=== PATIENT | female | born 1935 | race Caucasian/White ===

== ENCOUNTER 2021-05-11 16:34 | Emergency (ER) | payer OTHER ==
--- OUTSIDE RECORDS SUMMARY | 2021-05-11 16:38 | XMS REPORT | Clinical Summary ---
:1935 Author Organization [facility] MD [facility] Address [address] [place] [address] Care Team Providers Name Role Phone Taylor Swanson Unavailable Humaira Rahman MD Unavailable Jin Gaitan MD Unavailable MD Herb Primary Care Provider Allergies Not on File Medications Not on file Active Problems Not on file Encounters Date Type Specialty Care Team Description 05/09/2021 Lab Requisition Lv Robbins MD Xu, Xiangdong 05/08/2021 Lab Requisition Lv Robbins MD 05/07/2021 Lab Requisition Lv Robbins MD Witson, Anne S., MD 04/28/2021 Telephone Patient Access Services Pj Clayton RN 04/26/2021 Travel 04/23/2021 Telephone Patient Access Services ClaytonPj RN after 05/11/2020 Social History Tobacco Use Types Packs/Day Years Used Date Never Assessed Sex Assigned at Date Recorded Not on file Job Start Date Occupation Industry Not on file Not on file Not on file COVID-19 Exposure Response Date Recorded In the last month, have you been in contact with No / Unsure 04/26/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 Last Filed Vital Signs Not on file Plan of Treatment Date Type Specialty Care Team Description 05/23/2021 NPR Patient Access Services Kenny Estevez MD [address] [place], [place] [address] (Wo rk) 05/28/2021 Office Visit Lymphoma and Myeloma Sawyer Estevez MD [address] [place], [place] [address] (Wo rk) Health Maintenance Due Date Last Done Comments COVID-19 Vaccination (3 - Booster for 11/22/2020 06/22/2020 , 05/24/2020 Moderna series) Results Not on fileafter 05/11/2020 Insurance Payer Benefit Plan Subscriber ID Effective Phone Address Typ e / Group Dates MEDICARE MEDICARE PART [id number] 2002-Pres [phone] NOVITAS Medicare A AND B ent [id number] [place] [address] FOR [id number] 2021-Pres [address] [place] Other [address] Care Teams Ditch Rider Relationship Specialty Start Date End Date Taylor Swanson PCP - External Referring Hematology and 04/23/[address] Oncology [place], [place] [id number] Kenny Estevez MD PCP - General Lymphoma and Myeloma 04/26/21 [address] [place] [address] Humaira Rahman MD Physician Medical Oncology 04/26/21 [address] [facility] [place] [address] [place] [address] Jin Gaitan Physician Family Practice 04/26/21 MD [address] [place] [address]
--- OUTSIDE RECORDS SUMMARY | 2021-05-11 16:38 | XMS REPORT | Continuity of Care Document ---
:1935 Author Organization [facility] t Address [address] [place] [address] Care Team Providers Name Role Phone [phone] Primary Care Physician Unavailable SYSTEM, PROVIDER NOT IN Attending Clinician Unavailable Yunier Robbins MD Attending Clinician Pool Attending Clinician Anna TAPIA SMaya Attending Clinician Forrest RN Attending Clinician Unavailable Payers Payer Name Policy Type Policy Effective Date Expiration Date Sour ce Number MEDICAREMEDICARE PART [id number] 2002 MD Naif Austin AND 00:00:00 [id number]-P [id number] [facility] [address]Medicare TRICARETRICARE FOR [id number] 2021 MD Maile christine [id number]/3/202 00:00:00 [address] [place] [id number] Other Problems This patient has no known problems. Allergies, Adverse Reactions, Alerts This patient has no known allergies or adverse reactions. Social History Social Habit Start Date Stop Date Quantity Comments Source Exposure to Not sure MD Disla SARS-CoV-2 (event) Sex Ass[birth year] At [birth year] MD Disla 00:00:00 00:00:00 Medications This patient has no known medications. Procedures This patient has no known procedures. Plan of Care Planned Activity Planned Date Details Comments Source Future Scheduled Test 2020-11-22 00:00:00 COVID-19 Vaccination (3 MD Naif - Booster for Moderna series) [code = COVID-19 Vaccination (3 - Booster for Moderna series)] Encounters Start End Encounter Admission Attending Care Care Encounter Source Date/Time Date/Time Type Type Clinicians Facility Department ID 2021-04-23 Outpatient SYSTEM, RADHA GARCIA [id number] 14:05:02 PROVIDER Raffy o n Results This patient has no known results.
--- NOTE | 2021-05-11 17:38 | RAD REPORT ---
EXAM DESCRIPTION: RAD - Pelvis - 05/11/2021 5:21 pm CLINICAL HISTORY: Pelvic pain status post injury FINDINGS: No fracture or dislocation is seen. Screws fuse the SI joints. Bones are osteoporotic If the patient continues to have symptoms to suggest an occult fracture then MRI would be recommended
--- NOTE | 2021-05-11 17:38 | RAD REPORT ---
EXAM DESCRIPTION: RAD - Hip Left 2 View - 05/11/2021 5:21 pm CLINICAL HISTORY: Left hip pain status post injury FINDINGS: No fracture or dislocation is seen. Screws fuse the SI joints. Bones are osteoporotic If the patient continues to have symptoms to suggest an occult fracture then MRI would be recommended
--- NOTE | 2021-05-11 18:07 | RAD REPORT ---
EXAM DESCRIPTION: CT - Head C Spine Mpr Wo Con - 05/11/2021 5:38 pm CLINICAL HISTORY: Head and neck injury status post fall. Head and neck pain COMPARISON: None. TECHNIQUE: Computed axial tomography of the head and cervical spine was obtained. Sagittal and coronal reconstruction was performed. All CT scans are performed using dose optimization technique as appropriate and may include automated exposure control or mA/KV adjustment according to patient size. FINDINGS: An intracranial bleed is not seen. The ventricles are normal in caliber. An extra-axial fl uid collection is not noted. Left maxillary sinusitis Minimally displaced fracture involves the right lateral mass of C2 extending to the right transverse foramen. Extensive postsurgical changes involve the C2 to the upper thoracic spine. Plates, screws and bone pl ugs have been placed into the proximal and mid cervical spine. Pedicular and laminar screws have been placed into the mid and distal cervical spine and thoracic spine. Laminectomies of been performed. Lucency of 4 millimeters is present between the posterior aspect of the anterior plate C5 and the ant erior aspect of vertebral body. Kyphosis is present at this level. No dislocation noted IMPRESSION: No acute intracranial abnormality is seen. Minimally displaced fracture right lateral mass of C2 Extensive postsurgical changes involving spine
--- NOTE | 2021-05-11 18:37 | EDPHYS ---
Physician Documentation [facility] Name: Olga Santiago Age: 85 yrs Sex: Female : 1935 Arrival Date: 05/11/2021 Time: 16:38 Bed 18 Private MD: ED Physician Dayo Hickey HPI: 05/11 17:37 This 85 yrs old Female presents to ER via Ambulatory with complaints of Fall Injury, rn Head Injury-Adult. 17:37 Details of fall: The patient fell from an upright position. Onset: The symptoms/episode rn began/occurred just prior to arrival. Associated injuries: The patient sustained injury to the head, contusion, pain. Severity of symptoms: At their worst the symptoms were mild, in the emergency department the symptoms are unchanged. The patient has not experienced similar symptoms in the past. The patient has not recently seen a physician. Pt reports fall from step-stool, hit left head and ear, no LOC, doesn't remember the events, reports more pain to right neck and not the location where she hit. Reports previous neck surgery and wants to make sure didn't ruin anything. Also reports pain to left hip but ambulatory. Takes aspirin. . Historical: - Allergies: 16:45 Clindamycin; ld1 - PMHx: 16:45 Diabetes mellitus; Hypertensive disorder; ld1 - PSHx: 16:45 Appendectomy; Hysterectomy; Tonsillectomy; Cervical surgery; ld1 - Immunization history:: Adult Immunizations up to date, Client reports receiving the 2nd dose of the Covid vaccine. - Social history:: Smoking status: Patient reports the use of cigarette tobacco products, Patient/guardian denies using alcohol. - Immunization history: Last tetanus immunization: - up to date. - Family history:: not pertinent. - Hospitalizations: : No recent hospitalization is reported. ROS: 17:37 Constitutional: Negative for fever, chills, and weight loss, Eyes: Negative for injury, rn pain, redness, and discharge, Neck: + neck pain Cardiovascular: Negative for chest pain, palpitations, and edema, Respiratory: Negative for shortness of breath, cough, wheezing, and pleuritic chest pain, Abdomen/GI: Negative for abdominal pain, nausea, vomiting, diarrhea, and constipation, Back: Negative for injury and pain, : Negative for injury, bleeding, discharge, and swelling, MS/Extremity: Negative for injury and deformity, Skin: Negative for injury, rash, and discoloration, Neuro: + headache Exam: 17:37 Constitutional: This is a well developed, well nourished patient who is awake, alert, rn and in no acute distress. Head/Face: Normocephalic, linear contusion left occiput, no laceration, no active bleeding. Eyes: Pupils equal round and reactive to light, extra-ocular motions intact. Lids and lashes normal. Conjunctiva and sclera are non-icteric and not injected. Cornea within normal limits. Periorbital areas with no swelling, redness, or edema. Neck: Trachea midline, no masses palpated, no cervical bony tenderness Cardiovascular: Regular rate and rhythm. No pulse deficits. Respiratory: No increased work of breathing, no retractions or nasal flaring. Abdomen/GI: Soft, non-tender MS/ Extremity: Pulses equal, no cyanosis. Neurovascular intact. Full, normal range of motion. Equal circumference. Mild tenderness left posterior hip with swelling. Ambulatory and stands on her own power. Neuro: Awake and alert, GCS 15, oriented to person, place, time, and situation. Cranial nerves II-XII grossly intact. Motor strength 5/5 in all extremities. Sensory grossly intact. Cerebellar exam normal. Normal gait. Vital Signs: 16:41 BP 157 / 115; Pulse 84; Resp 17; Temp 98.7(TE); Pulse Ox 100% on R/A; Weight 70.76 kg; ld1 Height 5 ft. 3 in. (160.02 cm); Pain 10/10; 16:41 Body Mass Index 27.63 (70.76 kg, 160.02 cm) ld1 [place] Coma Score: 16:41 Eye Response: spontaneous(4). Verbal Response: oriented(5). Motor Response: obeys ap3 commands(6). Total: 15. 19:28 Eye Response: spontaneous(4). Verbal Response: oriented(5). Motor Response: obeys sm5 commands(6). Total: 15. Trauma Score (Adult): 16:41 Eye Response: spontaneous(1); Verbal Response: oriented(1); Motor Response: obeys ap3 commands(2); Systolic BP: > 89 mm Hg(4); Respiratory Rate: 10 to 29 per min(4); [place] Score: 15; Trauma Score: 12 MDM: 16:52 Patient medically screened. rn 18:33 Differential diagnosis: closed head injury, contusion, fracture, sprain, strain. Data rn reviewed: vital signs, nurses notes, radiologic studies, CT scan, plain films, and as a result, I will admit patient. Counseling: I had a detailed discussion with the patient and/or guardian regarding: the historical points, exam findings, and any diagnostic results supporting the discharge/admit diagnosis, radiology results, the need for further work-up and treatment in the hospital, the need to transfer to another facility, for higher level of care, [facility] does not immediately have the required specialist. ED course: Pt with fracture of right lateral mass of C2. No new neurological symptoms or signs on exam. Will transfer to [place] for MRI and neurosurgical eval, but anticipate low chance of intervention given lack of new neurological symptoms. Will transfer given high chance of concomitant cervical injuries with C2 mass fracture, and unable to get MRI or neurosurgical consult here to further eval stability/instability. Pt placed in C-collar and transferred in c-collar.. 05/11 16:57 Order name: CT Head C Spine; Complete Time: 18:09 rn 05/11 16:57 Order name: XRAY Pelvis; Complete Time: 18:09 rn 05/11 16:57 Order name: XRAY Hip LEFT 2 view; Complete Time: 18:09 rn Administered Medications: No medications were administered Disposition Summary: 05/11/21 18:36 Transfer Ordered Transfer Location: [facility] rn Reason: Higher level of care rn Condition: Stable rn Problem: new rn Symptoms: are unchanged rn Accepting Physician: Dr. Omid Corea(05/11/21 19:29) sm5 Diagnosis - Other displaced fracture of second cervical vertebra, initial encounter for closed rn fracture - Right lateral mass, minimally displaced Forms: - Medication Reconciliation Form rn - SBAR form rn Signatures: Dispatcher [employer] EDMS Dayo Hickey MD MD rn Prokisch, Amanda RN RN ap3 Mikala Chery Lauren RN RN ld1 Alyssa Bethea RN RN sm5 Corrections: (The following items were deleted from the chart) 16:48 16:45 Allergies: Aspirin; ld1 ld1 17:09 16:49 Head Brain Wo Cont+CT.RAD.BRZ ordered. EDMS EDMS 17:33 17:32 Head C Spine Mpr Wo Con ordered. EDMS EDMS 18:52 18:36 Dr. guerrier eb 19:29 18:52 Dr. Omid Corea eb sm5 05/12 08:24 05/11 18:33 ED course: Pt with fracture of right lateral mass of C2. No new rn neurological symptoms or signs on exam. Will transfer to [place] for MRI and neurosurgical eval, but anticipate low chance of intervention given lack of new neurological symptoms. Will transfer given high chance of concomitant cervical injuries with C2 mass fracture, and unable to get MRI or neurosurgical consult here to further eval stability/instability. . rn
--- NOTE | 2021-05-11 18:37 | ER ---
Nurse's Notes [facility] Name: Olga Santiago Age: 85 yrs Sex: Female : 1935 Arrival Date: 05/11/2021 Time: 16:38 Bed 18 Private MD: Diagnosis: Other displaced fracture of second cervical vertebra, initial encounter for closed fracture-Right lateral mass, minimally displaced Presentation: 05/11 16:41 Chief complaint: Patient states: I fell today at home, I hit my left ear/head. I was ld1 not aware that I fell, until I was getting myself up off of the floor. I was putting books on the bookshelf. Pt does not recall falling, does not know what she hit. Pt takes baby aspirin daily. Coronavirus screen: At this time, the client does not indicate any symptoms associated with coronavirus-19. Ebola Screen: No symptoms or risks identified at this time. Initial Sepsis Screen: Does the patient meet any 2 criteria? No. Patient's initial sepsis screen is negative. Does the patient have a suspected source of infection? No. Patient's initial sepsis screen is negative. Risk Assessment: Do you want to hurt yourself or someone else? Patient reports no desire to harm self or others. Onset of symptoms was May 11, 2021. 16:41 Method Of Arrival: Ambulatory ld1 16:41 Acuity: RACHEL 3 ld1 16:41 Care prior to arrival: None. Mechanism of Injury: Fall down steps. Trauma event ap3 details: Injury occurred in the [facility], Injury occurred: at home. Triage Assessment: 16:45 General: Appears in no apparent distress. uncomfortable, Behavior is cooperative, ld1 anxious. Pain: Complains of pain in face and left hip Pain does not radiate. Pain currently is 10 out of 10 on a pain scale. Neuro: Level of Consciousness is awake, alert, obeys commands, Oriented to person, place, time, situation, Appropriate for age. Respiratory: Airway is patent Respiratory effort is even, unlabored. Musculoskeletal: Reports pain in neck. Trauma Activation: Not Applicable Physician: ED Physician; Name: ; Notified At: ; Arrived At: Physician: General Surgeon; Name: ; Notified At: ; Arrived At: Physician: Radiology; Name: ; Notified At: ; Arrived At: Physician: Respiratory; Name: ; Notified At: ; Arrived At: Physician: Lab; Name: ; Notified At: ; Arrived At: Historical: - Allergies: 16:45 Clindamycin; ld1 - PMHx: 16:45 Diabetes mellitus; Hypertensive disorder; ld1 - PSHx: 16:45 Appendectomy; Hysterectomy; Tonsillectomy; Cervical surgery; ld1 - Immunization history:: Adult Immunizations up to date, Client reports receiving the 2nd dose of the Covid vaccine. - Social history:: Smoking status: Patient reports the use of cigarette tobacco products, Patient/guardian denies using alcohol. - Immunization history: Last tetanus immunization: - up to date. - Family history:: not pertinent. - Hospitalizations: : No recent hospitalization is reported. Screenin:41 Abuse screen: Denies threats or abuse. Denies injuries from another. Nutritional ap3 screening: No deficits noted. Tuberculosis screening: No symptoms or risk factors identified. Fall Risk Fall in past 12 months (25 points). No secondary diagnosis (0 pts). No IV (0 pts). Ambulatory Aid- None/Bed Rest/Nurse Assist (0 pts). Gait- Weak (10 pts.). Mental Status- Oriented to own ability (0 pts). Total Vazquez Fall Scale indicates Low Risk Score (25-44 pts). Fall prevention measures have been instituted. Side Rails Up X 2 Placed close to Nursing Station Frequent Obs/Assesments occuring. Primary Survey: 16:41 NO uncontrolled hemorrhage observed. A: The patient is alert. Airway: patent, No ap3 supplemental oxygen in use on arrival. Breathing/Chest: Respiratory pattern: regular, Respiratory effort: spontaneous, unlabored. Circulation: Skin color: pink, Skin temperature: warm. Disability Alert. Exposure/Environment: A warming method has been applied: A warm blanket has been provided to the patient. 17:52 Reassessment Breathing/Chest Respiratory pattern Regular Respiratory effort Spontaneous ap3 Unlabored Circulation Color [place] Temperature Warm Disability Alert. Assessment: 17:02 General: Appears in no apparent distress. comfortable, Behavior is calm, cooperative, ap3 appropriate for age. Pain: Complains of pain in neck and pelvis and face and left hip Pain began suddenly, 3 hours ago. Neuro: Level of Consciousness is awake, alert, obeys commands, Oriented to person, place, time, situation, Appropriate for age Moves all extremities. Gait is steady, Speech is normal. Cardiovascular: Patient's skin is warm and dry. 17:03 Respiratory: Airway is patent Respiratory effort is even, unlabored, Respiratory ap3 pattern is regular, symmetrical. Derm: Wound noted left ear and left occipital area. Musculoskeletal:. Injury Description: fall from step ladder. 19:17 General: Appears in no apparent distress. Behavior is cooperative, appropriate for age. sm5 Neuro: Level of Consciousness is awake, alert, obeys commands, Oriented to person, place, time, situation. Cardiovascular: Capillary refill < 3 seconds Patient's skin is warm and dry. Respiratory: Airway is patent Trachea midline Respiratory effort is even, unlabored. Vital Signs: 16:41 BP 157 / 115; Pulse 84; Resp 17; Temp 98.7(TE); Pulse Ox 100% on R/A; Weight 70.76 kg; ld1 Height 5 ft. 3 in. (160.02 cm); Pain 10/10; 16:41 Body Mass Index 27.63 (70.76 kg, 160.02 cm) ld1 Michael Coma Score: 16:41 Eye Response: spontaneous(4). Verbal Response: oriented(5). Motor Response: obeys ap3 commands(6). Total: 15. 19:28 Eye Response: spontaneous(4). Verbal Response: oriented(5). Motor Response: obeys sm5 commands(6). Total: 15. Trauma Score (Adult): 16:41 Eye Response: spontaneous(1); Verbal Response: oriented(1); Motor Response: obeys ap3 commands(2); Systolic BP: > 89 mm Hg(4); Respiratory Rate: 10 to 29 per min(4); Michael Score: 15; Trauma Score: 12 ED Course: 16:38 Patient arrived in ED. mr 16:45 Triage completed. ld1 16:45 Arm band placed on right wrist. ld1 16:52 Dayo Hickey MD is Attending Physician. rn 17:10 CT Head C Spine In Process Unspecified. EDMS 17:20 XRAY Pelvis In Process Unspecified. EDMS 17:20 XRAY Hip LEFT 2 view In Process Unspecified. EDMS 17:50 Kristi Hughes, JOEL is Primary Nurse. ap3 17:53 Patient has correct armband on for positive identification. Bed in low position. Call ap3 light in reach. Side rails up X2. Pulse ox on. NIBP on. Door closed. Noise minimized. 17:53 Patient maintains SpO2 saturation greater than 95% on room air. ap3 17:53 Thermoregulation: warm blanket given to patient. ap3 18:35 initiated a transfer with Kristina from the [facility]/. 18:[address] Corea the neuro environmental geologist for [facility] with Dr. penelope Hickey for patient transfer consultation. 18:39 administrative approval given by Kristina Hernandez Rn/ patient has been accepted to [facility] ER/ Dr/ Omid Corea has accepted the patient in transfer/ report to be called to [phone]. 19:29 No provider procedures requiring assistance completed. Patient did not have IV access sm5 during this emergency room visit. Administered Medications: No medications were administered Output: 19:29 Urine: 200ml (Voided); Total: 200ml. 5 Outcome: 18:36 ER care complete, transfer ordered by . rn 19:28 Transferred by ground EMS to [facility], Transfer form completed. X-rays sent 5 w/ patient. 19:28 Condition: stable 19:28 Instructed on the need for transfer. 19:28 Patient's length of stay in the Emergency Department was greater than 2 hours. 19:29 Patient left the ED. 5 Signatures: Dispatcher [employer] EDVT Ria Sanchez Dayo Eugene MD MD rn Prokisch, Amanda, RN RN ap3 Mikala Chery Danna Urbano RN RN ld1 Alyssa Bethea RN RN 5 Corrections: (The following items were deleted from the chart) 16:48 16:45 Allergies: Aspirin; ld1 ld1
[2021-05-11 19:34] VITALS: BP 157/115; TEMP 98.7; O2SAT 100
== END 2021-05-11 19:29 | disposition short-term general hospital (02) ==
LOC: ER 16:34
DX: S12.190A Other displaced fracture of second cervical vertebra, initial encounter for closed fracture (principal); W17.89XA Other fall from one level to another, initial encounter; I10 Essential (primary) hypertension; E11.9 Type 2 diabetes mellitus without complications; Z88.3 Allergy status to other anti-infective agents; Z72.0 Tobacco use
CPT/HCPCS: 70450; 72125; 72170; 99285

== ENCOUNTER 2023-11-03 15:21 | Inpatient (IN) | payer OTHER ==
--- OUTSIDE RECORDS SUMMARY | 2023-11-03 15:26 | XMS REPORT | Clinical Summary ---
Author Name Unknown Organization [facility] Address [address] [place] [address] Care Team Providers Care Diaper Folder Name Role Phone Taylor Swanson Unavailable [phone] Humaira Rahman MD Unavailable Jin Gaitan MD Unavailable Kenny Estevez MD Primary Care Provider Salinas Baptiste MD Unavailable Mary Serna MD Unavailable Inga Juarez NP Unavailable Armani Sanders MD Unavailable Allergies Active Allergy Reactions Criticality Noted Date Comments Aripiprazole Diarrhea 04/03/2023 Diarrhea for 10 days Clindamycin Anaphylaxis High 05/28/2021 Medications Medication Sig Dispensed Refills Start Date End Date Status pantoprazole (PROTONIX) 40 mg EC tablet Take 1 tablet (40 mg) by mouth daily. 1 Active carvedilol (COREG CR) 40 mg 24 hr capsule Take 1 capsule (40 mg) by mouth at bedtime. 1 Active cetirizine (ZyrTEC) 10 mg tablet Take 1 tablet (10 mg) by mouth daily. 1 Active levothyroxine sodium (LEVOTHROID ORAL) Take 50 mg by mouth at bedtime. Active hydroCHLOROthiazid e (MICROZIDE) 12.5 mg capsule Take 1 capsule (12.5 mg) by mouth daily. 1 Active estradioL (CLIMARA) 0.075 mg/[address] 1 patch on the skin once a week. 2 Active diclofenac sodium (Voltaren) 1 % gel Apply topically as needed. Active oxyCODONE-acetamin ophen (PERCOCET) 7.5-325 mg per tablet Take 1 tablet by mouth every 6 (six) hours as needed for severe pain or moderate pain. 2 Active potassium chloride (K-DUR,KLOR-CON M) 20 mEq tablet Take 1 tablet (20 mEq) by mouth daily. 2 Active aspirin 81 mg EC tablet Take 1 tablet (81 mg) by mouth daily. Active vit A/vit C/vit E/zinc/copper (PRESERVISION AREDS ORAL) Take 1 capsule by mouth twice daily. Active multivit-min/iron/ folic/lutein (CENTRUM SILVER WOMEN ORAL) Take 1 tablet by mouth daily. Active b complex vitamins tablet Take 1 tablet by mouth twice daily. Active ascorbic acid (VITAMIN C ORAL) Take 1 tablet by mouth daily. Active cholecalciferol, vitamin D3, 50 mcg (2,000 unit) capsule Take 1 capsule by mouth daily. Active TURMERIC ORAL Take 1 tablet by mouth daily. Active ubidecarenone (COENZYME Q10 ORAL) Take 1 tablet by mouth daily. Active MAGNESIUM ORAL Take 1 tablet by mouth every evening. Active ZINC ORAL Take 1 tablet by mouth daily. Active calcium carb/vitamin D3/vit K1 (CALCIUM SOFT CHEW ORAL) Take 650 mg by mouth 3 (three) times a day. Active docusate sodium (STOOL SOFTENER ORAL) Take 2 tablets by mouth at bedtime. Active melatonin 3 mg cap Take 1 capsule by mouth daily. Active biotin 5 mg tab Take 1 tablet by mouth every evening. Active naproxen sodium (ALEVE) 220 MG tablet Take 2 tablets (440 mg) by mouth every 12 (twelve) hours as needed. Active fexofenadine (DARIEN) 180 mg tablet Take 0.5 tablets (90 mg) by mouth daily. Active Calquence 100 mg capsule Take 1 capsule (100 mg) by mouth twice daily. 2 Active PNV 119-iron fum-folic acid ( 19) 29 mg iron- 1 mg tab Take by mouth. Active valsartan (DIOVAN) 80 mg tablet Take 1 tablet (80 mg) by mouth daily. 4 Active rosuvastatin (CRESTOR) 10 mg tablet Take 1 tablet (10 mg) by mouth at bedtime. 4 Active valACYclovir (VALTREX) 500 mg tablet Take 1 tablet (500 mg) by mouth daily. Active allopurinol (ZYLOPRIM) 100 mg tablet Take 1 tablet (100 mg) by mouth daily. Active sulfamethoxazole-t rimethoprim (BACTRIM DS) 800 mg-160 mg per tablet Take 1 tablet by mouth 3 (three) times a week Friday, Friday and Friday. Active ondansetron (ZOFRAN-ODT) 4 mg disintegrating tablet Dissolve 1 tablet (4 mg) on the tongue every 6 (six) hours as needed. Active DULoxetine (Cymbalta) 60 mg capsuleIndications :Stress and adjustment reaction Take 1 capsule (60 mg) by mouth twice daily. 60 capsule 3 4 Active atorvastatin (LIPITOR) 20 mg tablet Take 1 tablet (20 mg) by mouth daily. 1 04/03/19 24 Discontinued(Dis continued by another clinician) DULoxetine (CYMBALTA) 60 mg capsule Take 1 capsule (60 mg) by mouth daily. 2 05/09/19 24 Discontinued azilsartan medoxomiL (Edarbi) 40 mg tab Take 1 tablet by mouth daily. 04/03/19 24 Discontinued(Dis continued by another clinician) DULoxetine (Cymbalta) 30 mg capsuleIndications :Stress and adjustment reaction Take 2 capsules (60 mg) by mouth daily. Start 1 capsule daily for 5 days and increase to 2 capsules daily 60 capsule 3 4 09/08/19 24 Discontinued(Dos e adjustment) DULoxetine (Cymbalta) 60 mg capsuleIndications :Stress and adjustment reaction Take 1 capsule (60 mg) by mouth twice daily. 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 Results were reviewed in detail and discussed with patient. Case was reviewed by Dr. Estevez. Hemodynamically her WBC is still elevated but has decreased. Anemia has improved as well. Renal insufficiency is stable. Clinically she is stable at this time. Proceed with treatment as scheduled with no changes to dosage or administration. Due to persistently elevated WBC, we have requested her to return earlier than 6 months. Follow up: 4 months with repeat labs only (no imaging) Syncope 06/01/2021 Encounters Date Type Department Care Team Description 09/08/2023 Documentation Spiritual Care [address] [place] [id number] Lion Choudhury 09/08/2023 Documentation Spiritual Care [address] [place] [id number] Lion Choudhury 07/07/2023 12:30 PM CDT [facility] [address] [place] [address], 6th [place] [address] Kenny Estevez MD Low grade B-cell lymphoma (Primary Dx); Anemia in neoplastic disease 07/07/2023 10:30 AM CDT - 07/07/2023 11:59 PM CDT Hospital Encounter [facility] [address] [place] [address], [facility] [place] [address] Kenny Estevez MD Low grade B-cell lymphoma Discharge Disposition: Home 07/07/2023 Orders Only Neuroradiology [address] [place] [id number] Carito Ulloa MD 07/07/2023 Orders Only [facility] [address] [place] [address], 6th [place] [address] Dyan Neal APRN Low grade B-cell lymphoma (Primary Dx) 07/07/2023 Travel 04/03/2023 1:30 PM BAR TACKER [facility] [address] [place] [address], [facility] [place] [address] Kenny Estevez MD Low grade B-cell lymphoma (Primary Dx) 04/03/2023 Travel 12/02/2022 11:00 AM CDT Follow[facility]Up [facility] [address] [facility] Main [address]g, 6th [place] [address] Kenny Estevez MD Low grade B-cell lymphoma (Primary Dx); 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 (30 mcg/0.3 mL) 06/26/2023 Pfizer SARS-CoV-2 Vaccination (Purple Cap) 05/15 Pneumococcal Conjugate 13-Valent 01/12/2021,11/23 Surgical History Surgery Date Site/Laterality Comments APPENDECTOMY When I was 15 yrs old . HYSTERECTOMY 03/24/1965 - 03/23/1966 Because of continuing bleeding. SHOULDER SURGERY 10/25/1992 Right Arthroscopic TONSILLECTOMY 03/24/1967 - 03/23/1968 HEMORRHOIDECTOMY 03/24/1967 - 03/23/1968 SINUS SURGERY X3 in 1977 and 1978 BREAST BIOPSY 03/24/1979 - 03/23/1980 Left NECK SURGERY 03/24/1982 - 03/23/1983 CARPAL TUNNEL RELEASE 03/24/1982 - 03/23/1983 Right LAMINECTOMY 01/26/1986 Bilateral BACK SURGERY 12/14/1986 Bilateral BONE INCISION AND DRAINAGE 04/11/1989 Left 4th finger LUMBAR SPINE SURGERY 12/15/1995 LUMBAR SPINE SURGERY 02/09/1996 BREAST BIOPSY 04/15/1997 Right Z-PLASTY REPAIR 01/23/1999 Neck EXTRACTION EXTRACAPSULAR CATARACT 12/25/1999 Left EXTRACTION EXTRACAPSULAR CATARACT 12/19/2004 Right SHOULDER SURGERY 04/24/2005 Left COLONOSCOPY 07/31/2006 Medical History Medical History Date Comments Hypertension Hyperlipidemia Meds for on 2019 I think Migraine Years ago Functional visual loss Readers Sinusitis [place] Unspecified lump in unspecif ied breast Dense Pneumonia Been a while malou g time ago had shot --/second shot due Gastric reflux Don t remember. Polyp of colon In my sinus. History of recurrent urinary tract infection Years ago . Urinary incontinence About 2011 Use pads . Anemia [address] Gaitan found i n my blood work. Blood transfusion, without reported diagnosis 12 May 2021 Gave to me after my fall at [facility] in [facility] Arthritis Osteoarthritis Diabetes mellitus 1981/ when I turned 42 yrs old Took meds for awhile. No meds now . Watch eating. Depressive disorder Off and on most of m y life . Anxiety Worrying about this move and my health. Eczema Caused by my str ess . Family History Medical History Relation Name Comments Breast cancer Maternal Grandmother She di ed of breast cancer and child . Relation Name Status Comments Maternal Grandmother Social History Tobacco Use Types Packs/Day Years Used Date Smoking Tobacco: Never Smokeless Tobacco: Never Comments:I have never smoked . Alcohol Use Standard Drinks/Week Comments Not Currently 0 (1 standard drink = 0.6 oz pur e alcohol) Occasionally. Sex and Gender Information Value Date Recorded Sex Assigned at Female 06/08/2021 1:20 PM CDT Gender Identity Female 06/08/2021 1:20 PM CDT Sexual Orientation Straight 06/08/2021 1: 22 PM CDT Job Start Date Occupation Industry Not on file Not on file Not on file Obstetrics History Last Filed Vital Signs Vital Sign Reading Time Taken Comments Blood Pressure 154/75 07/07/2023 12:48 PM CDT Pulse 79 07/07/2023 12:48 PM CDT Temperature 36.7 C (98.1 F) 07/07/2023 12:48 PM C DT Respiratory Rate 20 07/07/2023 12:48 PM CDT Oxygen Saturation 97% 07/07/2023 12:48 PM CDT Inhaled Oxygen Concentration - - Weight 76 kg (167 lb 8.8 oz) 07/07/2023 12:48 PM CDT Height - - Body Mass Index 30.64 05/28/2021 10:09 AM BAR TACKER Plan of Treatment Upcoming Encounters Date Type Department Care Team (Late st Contact Info) Description 11/13/2023 7:30 AM CDT Appointment Diagnostic [facility] Center [address] [facility], [place] [address] Dyan Neal, [employer]DNANCE [employer] INST[employer]ATION MECH[employer]IC [address] [place] [address] [email or web address] 11/13/2023 8:00 AM CDT Appointment Main CT IMAGING [address] [facility], 3rd [place] [address] Dyan Neal, [employer]DNANCE [employer] INSTALLATION MECH[employer]IC [address] [place] [address] [email or web address] 11/13/2023 12:15 PM CDT Follow-Up [facility], 6th [place] [address] Kenny Estevez MD [address] [place] [address] [email or web address] Health Maintenance Due Date Last Done Comments Pneumococcal Vaccine: 65+ Ye ars (2 of 2 - PPSV23 or PCV20) 03/09/2021 01/12/2021, 12/20/2015 COVID-19 Vaccine ( - 2022-2 4 season) 2023 06/26/2023, 05/15/2021, 06/22/2020, Additional history exists Influenza Vaccine 11/23/2023 01/08/2021 Procedures Procedure Name Priority Date/Time Associated Diagnosis Comments DIFFERENTIAL Routine 07/07/2023 10:38 AM CDT Low grade B-cell lymphoma MDA CP PRLYMF Routine 07/07/2023 10:38 AM CDT Low grade B-cell lymphoma .CBC Routine 07/07/2023 10:38 AM CDT Low grade B-cell lymphoma IMMUNOGLOBULIN G Routine 07/07/2023 10:3 8 AM CDT Low grade B-cell lymphoma URIC ACID Routine 07/07/2023 10:38 AM CDT Low grade B-cell lymphoma COMPREHENSIVE METABOLIC PANEL Routine 07/07/2023 10:38 AM CDT Low grade B-cell lymphoma MAGNESIUM LEVEL Routine 07/07/2023 10:38 AM CDT Low grade B-cell lymphoma PHOSPHORUS LEVEL Routine 07/07/2023 10:3 8 AM CDT Low grade B-cell lymphoma LACTATE DEHYDROGENASE Routine 07/07/2023 10:38 AM CDT Low grade B-cell lymphoma COMPLETE BLOOD COUNT W/ DIFFERENTIAL Routine 07/07/2023 10:38 AM CDT Low grade B-cell lymphoma HISTORICAL ABORH Routine 04/03/2023 12:1 0 PM BAR TACKER Low grade B-cell lymphoma DIFFERENTIAL Routine 04/03/2023 11:30 AM BAR TACKER Low grade B-cell lymphoma MDA CP PRLYMF Routine 04/03/2023 11:30 AM BAR TACKER Low grade B-cell lymphoma .CBC Routine 04/03/2023 11:30 AM BAR TACKER Low grade B-cell lymphoma TYPE AND SCREEN Routine 04/03/2023 11:30 AM BAR TACKER Low grade B-cell lymphoma PHOSPHORUS LEVEL Routine 04/03/2023 11:3 0 AM BAR TACKER Low grade B-cell lymphoma MAGNESIUM LEVEL Routine 04/03/2023 11:30 AM BAR TACKER Low grade B-cell lymphoma LACTATE DEHYDROGENASE Routine 04/03/2023 11:30 AM BAR TACKER Low grade B-cell lymphoma URIC ACID Routine 04/03/2023 11:30 AM BAR TACKER Low grade B-cell lymphoma COMPREHENSIVE METABOLIC PANEL Routine 04/03/2023 11:30 AM BAR TACKER Low grade B-cell lymphoma COMPLETE BLOOD COUNT W/ DIFFERENTIAL Routine 04/03/2023 11:30 AM BAR TACKER Low grade B-cell lymphoma .GLOMERULAR FILTRATION RATE Routine 12/02/2022 9:37 AM CDT 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 SERUM CREATININE Routine 12/02/2022 9:37 AM CDT 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 DIFFERENTIAL Routine 12/02/2022 9:37 AM CDT 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 .CBC Routine 12/02/2022 9:37 AM CDT 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 ELECTROLYTE PANEL Routine 12/02/2022 9:3 7 AM CDT 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 ASPARTATE AMINOTRANSFERASE Routine 12/02/2022 9:37 AM CDT 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 MAGNESIUM LEVEL Routine 12/02/2022 9:37 AM CDT 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 ALANINE AMINOTRANSFERASE Routine 023 9:37 AM CDT 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 LACTATE DEHYDROGENASE Routine 12/02/2022 9:37 AM CDT 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 ALKALINE PHOSPHATASE Routine 12/02/2022 9:37 AM CDT 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 FRACTIONATED BILIRUBIN Routine 9:37 AM CDT 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 URIC ACID Routine 12/02/2022 9:37 AM CDT 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 CREATININE Routine 12/02/2022 9:37 AM CDT 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 BLOOD UREA NITROGEN Routine 12/02/2022 9 :37 AM CDT 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 GLUCOSE, RANDOM Routine 12/02/2022 9:37 AM CDT 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 PHOSPHORUS LEVEL Routine 12/02/2022 9:37 AM CDT 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 Blood Peripheral blood specimen / Unknown Venipuncture / Unknown 07/07/2023 10:38 AM CDT 07/07/2023 10:40 AM CDT Kenny Estevez MD LAB BLOOD ORDERABLES [facility] Unless otherwise noted, all lab tests performed by: Division of Pathology and Laboratory Medicine [address] [place] [address] [place] [address] * (ABNORMAL) .CBC (07/07/2023 10:38 AM CDT) Only the most recent of3 resultswithin the time period is included. White Blood Cell 33.4(H) 4.1 - 10.5 K/uL 07/07/2023 12:07 PM CDT [facility] Red Blood Cell 3.38(L) 3.99 - 5.46 M/uL 07/07/2023 12:07 PM T [facility] Hemoglobin 11.4(L) 12.2 - 15.3 g/dL 07/07/2023 12:07 PM T [facility] Hematocrit 34.0(L) 36.4 - 46.8 % 07/07/2023 12:07 PM T [facility] Mean Cell Volume 101(H) 82 - 99 fL 07/07/2023 12:07 PM T [facility] Mean Cell Hemoglobin 33.7(H) 26.6 - 33.2 pg 07/07/2023 12:07 PM T [facility] Mean Cell Hemoglobin Concentration 33.5 31.1 - 35.2 g/dL 07/07/2023 12:07 PM T [facility] RDW-SD 44.3 37.5 - 49.7 fL 07/07/2023 12:07 PM [facility] Red Cell Diameter Width 12.1 11.6 - 15.5 % 07/07/2023 12:07 PM T [facility] Platelet 150(L) 160 - 397 K/uL 07/07/2023 12:07 PM [facility] Mean Platelet Volume 10.7 9.1 - 12.6 fL 07/07/2023 12:07 PM T [facility] INRBC 0.0 0.0 - 0.1 /100 WBC 07/07/2023 12:07 PM [facility] Comment: The INRBC (instrument NRBC) value reflects the enumeration of nucleated red blood cells contained in a 200uL sample of whole blood analyzed by the instrument. This value may differ from the NRBC value reported in a manual differential, which is based on a 100 cell differential. Blood Peripheral blood specimen / Unknown Venipuncture / Unknown 07/07/2023 10:38 AM CDT 07/07/2023 10:40 AM CDT Kenny Estevez MD LAB BLOOD ORDERABLES [facility] Unless otherwise noted, all lab tests performed by: Division of Pathology and Laboratory Medicine [address] [place] [address] * (ABNORMAL) Comprehensive Metabolic Panel (07/07/2023 10:38 AM CDT) Only the most recent of2 resultswithin the time period is included. Bilirubin Total <0.3 0.0 - 1.2 mg/dL 07/07/2023 11:27 AM CDT [facility] Comment:Indocyanine Green (I CG) may cause falsely elevated bilirubin results. Total and direct bilirubin must not be measured from samples containing indocyanine green. False elevation of total bilirubin can be seen in patients with IgG concentrations above 28 g/L. eGFR 48(L) >=60 mL/min/1. 73 sq. m 07/07/2023 11:27 AM CDT [facility] Comment: The eGFRcr is calculated with the 2020 CKD-EPI creatinine equation using creatinine, patient's age, and sex for adults 18 years of age and older. Other factors, especially muscle mass, may affect accuracy and need to be considered. According to the Kidney Disease: Improving Global Outcomes (KDIGO) CKD Work Group 2012 Clinical Practice Guideline, chronic kidney disease (CKD) is defined as the abnormalities of kidney structure or function, present for more than 3 months, with implications for health. CKD should be classified by cause, GFR category, and albuminuria category. KDIGO guidelines provide the following GFR categories. Stage / Description / GFR mL/min/1.73 m2: G1* / Normal or high / >= 90 G2* / Mildly decreased / 60-89 G3a / Mildly to moderately decreased / 45-59 G3b / Moderately to severely decreased / 30-44 G4 / Severely decreased / 15-29 G5 / Kidney failure / <15 *In the absence of evidence of kidney damage, neither G1 nor G2 fulfill criteria for CKD. Tot Protein 6.3(L) 6.4 - 8.3 gm/dL 07/07/2023 11:27 AM CDT [facility] Calcium Level Total 9.9 8.2 - 10.2 mg/dL 07/07/2023 11:27 AM [facility] Alkaline Phosphatase 45 35 - 104 U/L 07/07/2023 11:27 AM [facility] Albumin Level 4.4 3.5 - 5.2 gm/dL 07/07/2023 11:27 AM [facility] AST 23 <=32 U/L 07/07/2023 11:27 AM [facility] ALT 16 <=33 U/L 07/07/2023 11:27 AM [facility] Sodium Level 141 136 - 145 mmol/L 07/07/2023 11:27 AM [facility] Potassium Level 4.7(H) 3.4 - 4.5 mmol/L 07/07/2023 11:27 AM [facility] Chloride 104 98 - 107 mmol/L 07/07/2023 11:27 AM [facility] CO2 30(H) 22 - 29 mmol/L 07/07/2023 11:27 AM [facility] Anion Gap 7 4 - 14 mmol/L 07/07/2023 11:27 AM [facility] Creatinine 1.11(H) 0.51 - 0.95 mg/dL 07/07/2023 11:27 AM [facility] BUN 33(H) 6 - 23 mg/dL 07/07/2023 11:27 AM [facility] Glucose Level 111(H) 70 - 99 mg/dL 07/07/2023 11:27 AM [facility] Comment: Effective 10/18/15, the glucose reference intervals have been updated based on [place] [employer] guidelines (Standards of Medical Care in Diabetes 2016. Diabetes Care 2016; 39: S13-S22). Fasting blood glucose: Normal: 70-99 mg/dL Impaired fasting glucose (increased risk for diabetes or pre-diabetes): 100-125 mg/dL Diabetes mellitus: >/=126 mg/dL Random blood glucose: Normal: 70-199 mg/dL Note: Random glucose >100 mg/dL is associated with increased risk for diabetes. Blood Peripheral blood specimen / Unknown Venipuncture / Unknown 07/07/2023 10:38 AM CDT 07/07/2023 10:40 AM CDT Kenny Estevez MD LAB BLOOD ORDERABLES [facility] Unless otherwise noted, all lab tests performed by: Division of Pathology and Laboratory Medicine [facility] [place] [address] * (ABNORMAL) Differential (07/07/2023 10:38 AM CDT) Only the most recent of3 resultswithin the time period is included. Total Cells 100 07/07/2023 12:07 PM CDT [facility] Manual Neutrophil % 21.0(L) 43.2 - 72.7 % 07/07/2023 12:07 PM CDT [facility] Comment:The Neutrophil count includes Bands. Manual Lymphocyte % 76.0(H) 16.8 - 46.2 % 07/07/2023 12:07 PM CDT [facility] Manual Monocyte % 2.0(L) 5.1 - 12.5 % 07/07/2023 12:07 PM CDT [facility] Manual Eosinophil % 1.0 0.4 - 6.3 % 07/07/2023 12:07 PM CDT [facility] Metamyelocyte % 12:07 PM CDT [facility] Comment:The Metamyelocyte co unt includes Myelocytes. Manual Neutrophil Abs 7.01 1.95 - 7.25 K/uL 07/07/2023 12:07 PM CDT [facility] Manual Lymphocyte Abs 25.38(H) 1.01 - 3.24 K/uL 07/07/2023 12:07 PM CDT [facility] Manual Monocyte Abs 0.67 0.24 - 0.85 K/uL 07/07/2023 12:07 PM CDT [facility] Manual Eosinophil Abs 0.33 0.02 - 0.50 K/uL 07/07/2023 12:07 PM CDT [facility] RBC Morphology PRESENT 07/07/2023 12:07 PM CDT [facility] PLT Morph Normal Normal 07/07/2023 12:07 PM CDT [facility] Macrocyte Present(A) (none) 07/07/2023 12:07 PM CDT [facility] Smudge Cells Present(A) (none) 07/07/2023 12:07 PM CDT [facility] Slide Comment SEE NOTE 07/07/2023 12:07 PM CDT [facility] Comment:Differential perform ed on Albumin prep. Blood Peripheral blood specimen / Unknown Venipuncture / Unknown 07/07/2023 10:38 AM CDT 07/07/2023 10:40 AM CDT Kenny Estevez MD LAB BLOOD ORDERABLES Performing Organization Address City/[facility]/ZIP Co de Phone Number [facility] Unless otherwise noted, all lab tests performed by: Division of Pathology and Laboratory Medicine [address] [place] [address] * Uric acid (07/07/2023 10:38 AM CDT) Only the most recent of3 resultswithin the time period is included. Uric Acid 4.0 2.4 - 5.7 mg/dL 07/07/2023 11:27 AM CDT [facility] Blood Peripheral blood specimen / Unknown Venipuncture / Unknown 07/07/2023 10:38 AM CDT 07/07/2023 10:40 AM CDT Kenny Estevez MD LAB BLOOD ORDERABLES Performing Organization Address City/[facility]/ZIP Co de Phone Number [facility] Unless otherwise noted, all lab tests performed by: Division of Pathology and Laboratory Medicine [address] [place] [id number] * Phosphorus Level (07/07/2023 10:38 AM CDT) Only the most recent of3 resultswithin the time period is included. Phosphorus Level 3.8 2.5 - 4.5 mg/dL 07/07/2023 11:27 AM CDT [facility] Blood Peripheral blood specimen / Unknown Venipuncture / Unknown 07/07/2023 10:38 AM CDT 07/07/2023 10:40 AM CDT Kenny Estevez MD LAB BLOOD ORDERABLES Performing Organization Address City/[facility]/ZIP Co de Phone Number [facility] Unless otherwise noted, all lab tests performed by: Division of Pathology and Laboratory Medicine [address] [place] [id number] * Magnesium Level (07/07/2023 10:38 AM CDT) Only the most recent of3 resultswithin the time period is included. Magnesium Level 2.4 1.6 - 2.6 mg/dL 07/07/2023 11:27 AM CDT [facility] Blood Peripheral blood specimen / Unknown Venipuncture / Unknown 07/07/2023 10:38 AM CDT 07/07/2023 10:40 AM CDT Kenny Estevez MD LAB BLOOD ORDERABLES Performing Organization Address [facility] de Phone Number [facility] Unless otherwise noted, all lab tests performed by: Division of Pathology and Laboratory Medicine [address] [place] [address] [phone] * Lactate dehydrogenase (07/07/2023 10:38 AM CDT) Only the most recent of3 resultswithin the time period is included. LDH 176 135 - 214 U/L 07/07/2023 11:27 AM CDT [facility] Blood Peripheral blood specimen / Unknown Venipuncture / Unknown 07/07/2023 10:38 AM CDT 07/07/2023 10:40 AM CDT Narrative [facility] - 07/07/2023 11:27 AM CDT Results greater than 1651 U/L may not be reliable due to matrix effect with extended dilution as it exceeds the aml analyst's recommended limit. Caution should be exercised when interpreting such values and done in conjunction with clinical context. Kenny Estevez MD LAB BLOOD ORDERABLES Performing Organization Address City/[facility] Co de Phone Number [facility] Unless otherwise noted, all lab tests performed by: Division of Pathology and Laboratory Medicine [address] [place] [address] [phone] * (ABNORMAL) IgG (07/07/2023 10:38 AM CDT) Pathologist Nahun IgG 429.0(L) 610.0 - 1,616.0 mg/dL 07/07/2023 3:17 PM CDT [facility] Blood Peripheral blood specimen / Unknown Venipuncture / Unknown 07/07/2023 10:38 AM CDT 07/07/2023 10:40 AM CDT Kenny Estevez MD LAB BLOOD ORDERABLES [facility] Unless otherwise noted, all lab tests performed by: Division of Pathology and Laboratory Medicine [address] [place] [address] [phone] * Historical ABORh (04/03/2023 12:10 PM BAR TACKER) Pathologist Nahun ABORh AB POS 04/02/2023 6:00 PM BAR TACKER [facility] Blood Peripheral blood specimen / Unknown 04/03/2023 12:10 PM BAR TACKER 04/03/2023 12:10 PM BAR TACKER Olivia Michael ORDNANCE TRUCK INSTALLATION MECHANIC BLOOD BANK DEBORAH T ORDERABLES [facility] [address] [place] [address] [id number] [place] [address] * Type and Screen (04/03/2023 11:30 AM BAR TACKER) ABORh AB POS 04/03/2023 11:22 AM BAR TACKER [facility] ABSC Negative 04/03/2023 11:22 AM BAR TACKER [facility] Clot Expiration 04/06/2023 23:59 04/03/2023 11:22 AM BAR TACKER [facility] Historical Record Check Complete 04/03/2023 11:22 AM BAR TACKER [facility] Blood Venipuncture / Unknown 04/03/2023 11:30 AM BAR TACKER 04/03/2023 11:50 AM BAR TACKER Eularajiv Michael ORDNANCE TR[employer] INSTALLATION MECHANIC BLOOD BANK DEBORAH T ORDERABLES [facility] [address] [facility] [phone] [place] [address] * Glucose, Random (12/02/2022 9:37 AM CDT) Glucose Random 109 70 - 199 mg/dL [facility] Comment: Effective 10/18/15, the glucose reference intervals have been updated based on [place] [employer] guidelines (Standards of Medical Care in Diabetes 2016. Diabetes Care 2016; 39: S13-S22). Fasting blood glucose: Normal: 70-99 mg/dL Impaired fasting glucose (increased risk for diabetes or pre-diabetes): 100- 125 mg/dL Diabetes mellitus: >/=126 mg/dL Random blood glucose: Normal: 70-199 mg/dL Note: Random glucose >100 mg/dL is associated with increased risk for diabetes Blood 12/02/2022 9:37 AM CDT 12/02/2022 10:46 AM CDT Kenny Estevez MD LAB BLOOD ORDERABLES Performing Organization Address City/[facility] Co de Phone Number [facility] Unless otherwise noted, all lab tests performed by: Division of Pathology and Laboratory Medicine [address] [place] [phone] * (ABNORMAL) .Serum Creatinine (12/02/2022 9:37 AM CDT) Creatinine 1.02(H) 0.51 - 0.95 mg/dL [facility] Blood 12/02/2022 9:37 AM CDT 12/02/2022 10:46 AM CDT Kenny Estevez MD LAB BLOOD ORDERABLES [facility] Unless otherwise noted, all lab tests performed by: Division of Pathology and Laboratory Medicine [address] [place] [address] [phone] * (ABNORMAL) Glomerular Filtration Rate (12/02/2022 9:37 AM CDT) eGFR 54(L) >=60 mL/min/1.7 3 sq. m [facility] Comment: The eGFRcr is calculated with the 2020 CKD-EPI creatinine equation using creatinine, patient's age, and sex for adults 18 years of age and older. Other factors, especially muscle mass, may affect accuracy and need to be considered. According to the Kidney Disease: Improving Global Outcomes (KDIGO) CKD Work Group 2012 Clinical Practice Guideline, chronic kidney disease (CKD) is defined as the abnormalities of kidney structure or function, present for more than 3 months, with implications for health. CKD should be classified by cause, GFR category, and albuminuria category. KDIGO guidelines provide the following GFR categories Stage Description GFR mL/min/1.73 m2 G1* Normal or high >= 90 G2* Mildly decreased 60-89 G3a Mildly to moderately decreased 45-59 G3b Moderately to severely decreased 30-44 G4 Severely decreased 15-29 G5 Kidney failure <15 *In the absence of evidence of kidney damage, neither G1 nor G2 fulfill criteria for CKD. Blood 12/02/2022 9:37 AM CDT 12/02/2022 10:46 AM CDT Kenny Estevez MD LAB BLOOD ORDERABLES [facility] Unless otherwise noted, all lab tests performed by: Division of Pathology and Laboratory Medicine [address] [place] [id number] * Fractionated Bilirubin (12/02/2022 9:37 AM CDT) Bili Total 0.3 <=1.2 mg/dL [facility] Comment: Indocyanine Green (ICG) may cause falsely elevated bilirubin results. Total and direct bilirubin must not be measured from samples containing indocyanine green. False elevation of total bilirubin can be seen in patients with IgG concentrations above 28 g/L. Bili Direct <0.2 <=0.3 mg/dL [facility] Comment:Indocyanine Green (I CG) may cause falsely elevated bilirubin results. Total and direct bilirubin must not be measured from samples containing indocyanine green. Bili Indirect See Note 0.0 - 0.9 mg/dL [facility] Comment:Unable to calculate Indirect Bilirubin result due to some parameters are outside reportable range Blood 12/02/2022 9:37 AM CDT 12/02/2022 10:46 AM CDT Kenny Estevez MD LAB BLOOD ORDERABLES [facility] Unless otherwise noted, all lab tests performed by: Division of Pathology and Laboratory Medicine [address] [place] [address] [phone] * BUN (12/02/2022 9:37 AM CDT) BUN 21 6 - 23 mg/dL [facility] Blood 12/02/2022 9:37 AM CDT 12/02/2022 10:46 AM CDT Kenny Estevez MD LAB BLOOD ORDERABLES Performing Organization Address [facility] Co de Phone Number [facility] Unless otherwise noted, all lab tests performed by: Division of Pathology and Laboratory Medicine [address] [place] [address] [id number] * Alanine Aminotransferase (12/02/2022 9:37 AM CDT) ALT 20 <=33 U/L [facility] Blood 12/02/2022 9:37 AM CDT 12/02/2022 10:46 AM CDT Kenny Estevez MD LAB BLOOD ORDERABLES Performing Organization Address City/[facility] Co de Phone Number [facility] Unless otherwise noted, all lab tests performed by: Division of Pathology and Laboratory Medicine [address] [place] [address] [phone] * Aspartate Aminotransferase (12/02/2022 9:37 AM CDT) AST 23 <=32 U/L NM [facility] Blood 12/02/2022 9:37 AM CDT 12/02/2022 10:46 AM CDT Kenny Estevez MD LAB BLOOD ORDERABLES Performing Organization Address [facility] Phone Number [facility] Unless otherwise noted, all lab tests performed by: Division of Pathology and Laboratory Medicine [address] [place] [address] [phone] * Total Protein (12/02/2022 9:37 AM CDT) Total Protein 6.5 6.4 - 8.3 g/dL [facility] Blood 12/02/2022 9:37 AM CDT 12/02/2022 10:46 AM CDT Kenny Estevez MD LAB BLOOD ORDERABLES Performing Organization Address [facility] [place] Number [facility] Unless otherwise noted, all lab tests performed by: Division of Pathology and Laboratory Medicine [address] [place] [address] [phone] * Alkaline Phosphatase (12/02/2022 9:37 AM CDT) Alk Phos 44 35 - 104 U/L [facility] Blood 12/02/2022 9:3 7 AM CDT 12/02/2022 10:46 AM CDT Kenny Estevez MD LAB BLOOD ORDERABLES Performing Organization Address [facility] Phone Number [facility] Unless otherwise noted, all lab tests performed by: Division of Pathology and Laboratory Medicine [address] [place] [address] [phone] * Calcium Level (12/02/2022 9:37 AM CDT) Calcium Lvl 9.6 8.4 - 10.2 mg/dL [facility] Blood 12/02/2022 9:37 AM CDT 12/02/2022 10:46 AM CDT Kenny Estevez MD LAB BLOOD ORDERABLES [facility] Unless otherwise noted, all lab tests performed by: Division of Pathology and Laboratory Medicine [address] [place] [address] [phone] * Albumin Level (12/02/2022 9:37 AM CDT) Albumin Lvl 4.4 3.5 - 5.2 gm/dL [facility] Blood 12/02/2022 9:37 AM CDT 12/02/2022 10:46 AM CDT Kenny Estevez MD LAB BLOOD ORDERABLES Performing Organization Address [facility] Co de Phone Number [facility] Unless otherwise noted, all lab tests performed by: Division of Pathology and Laboratory Medicine [address] [place] [address] [phone] * (ABNORMAL) Electrolyte Panel (12/02/2022 9:37 AM CDT) Sodium Lvl 141 136 - 145 mEq/L [facility] Potassium Lvl 4.5 3.5 - 5.1 mEq/L [facility] Chloride 105 98 - 107 mEq/L [facility] CO2 30(H) 22 - 29 mEq/L [facility] Anion Gap 6 4 - 14 mEq/L [facility] Blood 12/02/2022 9:37 AM CDT 12/02/2022 10:46 AM CDT Kenny Estevez MD LAB BLOOD ORDERABLES Performing Organization Address City/[facility]/ZIP Co de Phone Number [facility] Unless otherwise noted, all lab tests performed by: Division of Pathology and Laboratory Medicine [address] [place] [address] [phone] after 11/03/2022 Advance Directives Documents on File Type Date Recorded 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 PCP - General Lymphoma and Myeloma 04/26/21 Humaira Rahman MD [address] [address] Physician Medical Oncology 04/26/21 Jin Gaitan MD [address] [place], [place] [address] Physician Family Practice 04/26/21 04/02/23 Salinas Baptiste MD [id number] [phone] Physician Anesthesiology 05/28/21 Mary Serna MD [address] [place], [place] [address] [email or web address] 11/16/21 [place] [address] [phone] [facility] 04/03/23 Armani Sanders MD [address] [place] [address] [email or web address] Consulting Physician Supportive Care 04/03/23
[2023-11-03 16:59] LABS: Absolute Basophils 0.1 K/uL (0-0.5); Absolute Eosinophils 0.4 K/uL (0-0.5); Absolute Lymphocytes (CBC) 12.6 K/uL (0.7-4.9); Absolute Monocytes 1.2 K/uL (0.1-1.3); Basophils % 0.3 % (0-1.3); Eosinophils % 1.9 % (0-4.4); Hematocrit 25.5 % (36.0-45.0); Hemoglobin 8.4 g/dL (12.0-15.0); Lymphocytes % 59.3 % (15.3-44.8); MCH 33.6 pg (27.0-35.0); MCHC 32.9 g/dL (32.0-36.0); MCV 102.4 fL (80-100); MPV 7.3 fL (7.6-11.3); Monocytes % 5.5 % (3.3-12.3); Nucleated Red Blood Cells % 0.1 % (0-0); Platelets 222 thou/uL (152-406); RBC Red Blood Cell Count 2.49 M/uL (3.86-4.86)
[2023-11-03 17:19] LABS: Albumin 3.3 g/dL (3.4-5.0); Anion Gap 8.7 mEq/L (5.0-15.0); Bilirubin Direct 0.2 mg/dL (0-0.2); Bilirubin Indirect, Calculated 0.2 mg/dL (0.2-0.8); Bilirubin Total 0.4 mg/dL (0.2-1.0); Globulin 3.4 g/dL (2.3-3.5); Magnesium 2.6 mg/dL (1.6-2.4); Potassium 4.7 mEq/L (3.5-5.1); Protein, Total 6.7 g/dL (6.4-8.2); Troponin High Sensitivity 10.5 pg/mL (<58.9)
[2023-11-03 17:30] LABS: Anisocytosis 2+; Blood Morphology Comment NOTED (NOT SEEN); Platelet Estimate ADEQ; White Blood Cell Scan OK (OK)
--- NOTE | 2023-11-03 17:32 | RAD REPORT ---
EXAM DESCRIPTION: Yogesh Single View11/03/2023 5:22 pm CLINICAL HISTORY: sob COMPARISON: 2022 FINDINGS: The lungs appear clear of acute infiltrate. The heart is normal size Small left pleural thickening suspected IMPRESSION: No acute abnormalities displayed
[2023-11-03] MEDS ORDERED: FUROSEMIDE 40 MG/4 ML VIAL ONE (18:18)
--- NOTE | 2023-11-03 19:22 | P.HP ---
Certification for Inpatient Patient admitted to: Inpatient With expected LOS: <2 Midnights <Opal Tapia - Last Filed: 11/04/23 05:43> Patient History Date of Service: 11/04/23 Reason for admission: Acute heart failure History of Present Illness: 88-year-old female with a past medical history of hypertension, diabetes, lymphoma, presents to the emergency room with shortness of breath. She reports shortness of breath worse when lying flat, worse with exertion, she reports started 1 week ago with progressively getting worse. She reports lower extremity edema she denies history of congestive heart failure. She denies fever, nausea vomiting diarrhea, chest pain, dizziness. Fever, plan to admit to [facility] for new onset acute heart failure with cardiology to consult. EKG s 81 beats/min. Rhythm is regular, Normal Sinus Rhythm with No ectopy. QRS [place] is Normal. PA interval is normal. QRS interval is normal. QT interval is normal. No Q waves. T waves are Normal. No ST changes noted. Vital signs on ER evaluation hypertensive urgency 4 BP 195 / 83; Pulse 85; Resp 18; Temp 98.6(O); Pulse Ox 98% ; Weight 77.56 kg; Height 5 cm, she was treated with Lasix 40 IV x 1 ft. 3 in. ; Pain 8/10; laboratory evaluation BNP 1873, 2035, leukocytosis 21.20, <Opal Tapia - Last Filed: 11/04/23 05:43> Date of Service: 11/04/23 <Isidra Corrales - Last Filed: 11/04/23 13:02> Allergies aripiprazole Allergy (Verified 11/03/23 22:05) Anaphylaxis clindamycin Allergy (Verified 11/03/23 22:05) Anaphylaxis Home Medications: Acalabrutinib Maleate [Calquence] 100 mg PO BID 11/04/23 Allopurinol 100 mg PO DAILY 11/04/23 Aspirin [Aspirin EC] 81 mg PO DAILY 11/04/23 Cetirizine HCl [Zyrtec] 10 mg PO DAILY 11/04/23 Duloxetine HCl [Cymbalta] 60 mg PO BID 11/04/23 Ondansetron [Zofran] 4 mg PO Q4H PRN 11/04/23 Oxycodone HCl/Acetaminophen [Oxycodone-Acetaminophn 7.5-325] 1 each PO BID 11/04/23 Rosuvastatin [Crestor] 10 mg PO BEDTIME 11/04/23 Sulfamethoxazole/Trimethoprim [Bactrim Ds Tablet] 1 each PO SEECOM 11/04/23 Valacyclovir [Valtrex] 500 mg PO DAILY 11/04/23 Valsartan 80 mg PO DAILY 11/04/23 estradioL [Estradiol (Twice Weekly)] 0.075 mg TD SEECOM 11/04/23 Review of Systems Per HPI <Opal Tapia - Last Filed: 11/04/23 05:43> Physical Examination - Physical Exam General: Alert, Oriented x3, Mild distress HEENT: Atraumatic, Normocephalic Neck: 2+ carotid pulse no bruit, JVD not distended Respiratory: Normal air movement, Crackles/rales Cardiovascular: Normal pulses, Regular rate/rhythm, Edema (+2) Gastrointestinal: Normal bowel sounds, Soft and benign Musculoskeletal: No clubbing, No contractures Integumentary: No breakdown, No significant lesion Neurological: Normal speech, Normal strength at 5/5 x4 extr, Cranial nerves 3-12 intact - Studies Laboratory Data (last 24 hrs) 11/03/23 11/03/23 16:51 16:51 WBC 21.20 H Hgb 8.4 L Hct 25.5 L Plt Count 222 Sodium 138 Potassium 4.7 BUN 18 Creatinine 0.95 Glucose 92 Magnesium 2.6 H Total Bilirubin 0.4 AST 17 ALT 30 Alkaline Phosphatase 59 <Opal Tapia - Last Filed: 11/04/23 05:43> - Studies Laboratory Data (last 24 hrs) 11/03/23 11/03/23 16:51 16:51 WBC 21.20 H Hgb 8.4 L Hct 25.5 L Plt Count 222 Sodium 138 Potassium 4.7 BUN 18 Creatinine 0.95 Glucose 92 Magnesium 2.6 H Total Bilirubin 0.4 AST 17 ALT 30 Alkaline Phosphatase 59 <Isidra Corrales - Last Filed: 11/04/23 13:02> Assessment and Plan - Plan Assessment plan Acute hypoxic respiratory failure secondary to decompensated heart New onset heart failure Pulmonary edema Hypertensive Cardiology to consult, telemetry, Echo ordered, 40 IV twice daily diuretics, as needed antihypertensive, metoprolol p.o. presents to the emergency room with shortness of breath. She reports shortness of breath worse when lying flat, worse with exertion, she reports started 1 week ago with progressively getting worse. She reports lower extremity edema she denies history of congestive heart failure. She denies fever, nausea vomiting diarrhea, chest pain, dizziness. Fever, plan to admit to [facility] for new onset acute heart failure with cardiology to consult. EKG s 81 beats/min. Rhythm is regular, Normal Sinus Rhythm with No ectopy. QRS [place] is Normal. PA interval is normal. QRS interval is normal. QT interval is normal. No Q waves. T waves are Normal. No ST changes noted. Vital signs on ER evaluation hypertensive urgency 4 BP 195 / 83; Pulse 85; Resp 18; Temp 98.6(O); Pulse Ox 98% ; Weight 77.56 kg; Height 5 cm, she was treated with Lasix 40 IV x 1 ft. 3 in. ; Pain 8/10; laboratory evaluation BNP 1873, 2035 Leukocytosis likely reactive to secondary heart failure Empiric antibiotics cefepime, WBC 21.20, UA ordered hypertension Lymphoma Resume appropriate home diabetes Accu-Cheks, sliding scale Full code DVT lovenox Diet cardiac Disposition Home independent prior Discharge Plan: Home - Advance Directives Does patient have a Living Will: No Does patient have a Durable POA for Healthcare: No - Code Status/Comfort Care Code Status: Full Code Critical Care: No Time Spent Managing Pts Care (In Minutes): 55 <Opal Tapia - Last Filed: 11/04/23 05:43> - Plan Pt seen and examined. I agree with the note by the APPLICATIONS SUPPORT LEAD. Pt is an 88yo female with past medical history of hypertension, diabetes, and lymphoma who presents with SOB and leg edema. The SOB worsened whe she is laying flat on her back. It started 1 week ago and progressively worsened. On admission, lab studies showed BNP 2035, WBC 21.2. At bedside. pt is in NAD. A/P: New onset CHF: BNP 2034. Will continue lasix 40mg iv BID, strict I/O and daily weight. Will f/u Echo. Htn: Continue metoprolol and valsartan DM II: Continue accuchek, SSI and ADA diet. Lymphoma: Continue to f/u with Oncologist in clinic DVT ppx: lovenox Code: full <Isidra Corrales - Last Filed: 11/04/23 13:02>
--- NOTE | 2023-11-03 19:22 | EDPHYS ---
Physician Documentation [facility] Name: Olga Santiago Age: 88 yrs Sex: Female : 1935 Arrival Date: 11/03/2023 Time: 15:21 Bed 17 Private MD: ED Physician Willard Mackey HPI: 11/02 19:14 This 88 yrs old Female presents to ER via Ambulatory with complaints of Shortness Of rt Breath. 19:14 Patient presents to the ED with dyspnea, orthopnea, dyspnea on exertion for about 1 rt week. Reports of bilateral lower extremity edema. Reports no previous history of CHF. Denies other acute complaints at this time, symptoms are moderate in severity, no other aggravating or alleviating factors.. Historical: - Allergies: 15:35 Clindamycin; cm10 15:35 aripiprazole; cm10 - Home Meds: 15:35 Zyrtec 10 mg Oral tablet [Active]; valsartan 80 mg oral tablet [Active]; rosuvastatin cm10 10 mg oral tablet [Active]; Cymbalta 60 mg oral capsule,delayed release (e.c.) [Active]; hydrochlorothiazide 12.5 mg Oral tablet [Active]; estradiol 0.075 mg/24 hr transdermal patch, transdermal weekly [Active]; oxycodone-acetaminophen 7.5-325 mg Oral tablet 1 tab 3 times per day [Active]; aspirin 81 mg Oral capsule [Active]; Calquence (acalabrutinib mal) 100 mg oral tablet 1 tab every 12 hours [Active]; valacyclovir 500 mg Oral tablet [Active]; allopurinol 100 mg Oral tablet [Active]; Bactrim DS 800-160 mg Oral tablet [Active]; - PMHx: 15:35 diabetes mellitus; Hypertensive disorder; LYMPHOMA; cm10 - PSHx: 15:35 Appendectomy; Cervical surgery; hysterectomy; Tonsillectomy; cm10 - Immunization history:: Adult Immunizations up to date. - Infectious Disease History:: Denies. - Social history:: Smoking status: Patient denies any tobacco usage or history of. - Family history:: not pertinent. ROS: 19:14 Constitutional: Negative for fever, chills, and weight loss, Abdomen/GI: Negative for rt abdominal pain, nausea, vomiting, diarrhea, and constipation, Back: Negative for injury and pain, MS/Extremity: Negative for injury and deformity, Skin: Negative for injury, rash, and discoloration, 19:14 Cardiovascular: Positive for edema, orthopnea, Negative for chest pain, 19:14 Respiratory: Positive for cough, shortness of breath, Exam: 19:14 Constitutional: This is a well developed, well nourished patient who is awake, alert, rt and in no acute distress. Head/Face: Normocephalic, atraumatic. Chest/axilla: Normal chest wall appearance and motion. Nontender with no deformity. No lesions are appreciated. Cardiovascular: Regular rate and rhythm with a normal S1 and S2. No gallops, murmurs, or rubs. Normal PMI, no JVD. No pulse deficits. Abdomen/GI: Soft, non-tender, with normal bowel sounds. No distension or tympany. No guarding or rebound. No evidence of tenderness throughout. Skin: Warm, dry with normal turgor. Normal color with no rashes, no lesions, and no evidence of cellulitis. Neuro: Awake and alert, GCS 15, oriented to person, place, time, and situation. Cranial nerves II-XII grossly intact. Motor strength 5/5 in all extremities. Sensory grossly intact. Cerebellar exam normal. Normal gait. 19:14 ECG was reviewed by the Attending Physician. 19:14 Respiratory: Faint bibasilar crackles, no respiratory distress, 19:14 Musculoskeletal/extremity: 2+ lower extremity edema. Vital Signs: 15:34 BP 195 / 83; Pulse 85; Resp 18; Temp 98.6(O); Pulse Ox 98% ; Weight 77.56 kg; Height 5 cm10 ft. 3 in. ; Pain 8/10; 17:22 BP 183 / 72; Pulse 82; Resp 18; Pulse Ox 100% on R/A; zm 18:28 BP 164 / 69; Pulse 78; Resp 20; Temp 97.8; Pulse Ox 94% on R/A; kj2 19:43 BP 167 / 72; Pulse 80; Resp 20; Pulse Ox 98% on R/A; kj2 21:02 BP 184 / 67; Pulse 79; Resp 20; Pulse Ox 98% on R/A; kj2 15:34 Body Mass Index 30.29 (77.56 kg, 160.02 cm) cm10 15:34 Pain Scale: Adult cm10 MDM: 15:50 Patient medically screened. rt 19:14 Differential diagnosis: CHF, pulmonary edema, pneumonia. Data reviewed: vital signs, rt nurses notes, lab test result(s), EKG, radiologic studies. Consideration of Admission/Observation Patient was admitted/placed on observation. Management of patient was discussed with the following: Hospitalist: Agrees to admit. I considered the following discharge prescriptions or medication management in the emergency department Medications were administered in the Emergency Department. See MAR. Independent interpretation of the following test(s) in the Emergency Department X-Ray: My interpretation is Pulmonary edema seen on interpretation of x-ray images. Test considered but Not performed: CT: Low suspicion for pulmonary embolism, CT angiogram not indicated. Care significantly affected by the following chronic conditions: Lymphoma. Counseling: I had a detailed discussion with the patient and/or guardian regarding the historical points, exam findings, and any diagnostic results supporting the discharge/admit diagnosis, lab results, radiology results, the need for further work-up and treatment in the hospital. Response to treatment: the patient's symptoms have mildly improved after treatment. 11/02 15:51 Order name: Basic Metabolic Panel; Complete Time: 17:31 rt 11/02 15:51 Order name: CBC with Diff; Complete Time: 17:31 rt 11/02 15:51 Order name: LFT's; Complete Time: 17:31 rt 11/02 15:51 Order name: Magnesium; Complete Time: 17:31 rt 11/02 15:51 Order name: NT PRO-BNP; Complete Time: 17:31 rt 11/02 15:51 Order name: Troponin HS; Complete Time: 17:31 rt 11/02 17:03 Order name: CBC Smear Scan; Complete Time: 17:31 EDMS 11/02 15:51 Order name: XRAY Chest (1 view); Complete Time: 17:32 rt 11/02 19:31 Order name: Echo with Doppler EDMS 11/02 19:31 Order name: Echo with Doppler EDMS 11/02 19:26 Order name: CONS Physician Consult EDMS 11/02 15:51 Order name: Cardiac monitoring; Complete Time: 21:02 rt 11/02 15:51 Order name: EKG - Nurse/Tech; Complete Time: 17:00 rt 11/02 15:51 Order name: IV Saline Lock; Complete Time: 16:55 rt 08 15:51 Order name: Labs collected and sent; Complete Time: 16:55 rt 11/02 15:51 Order name: O2 Per Protocol; Complete Time: 16:55 rt 11/02 15:51 Order name: O2 Sat Monitoring; Complete Time: 16:55 rt EC:14 Rate is 81 beats/min. Rhythm is regular, Normal Sinus Rhythm with No ectopy. QRS Draper rt is Normal. MT interval is normal. QRS interval is normal. QT interval is normal. No Q waves. T waves are Normal. No ST changes noted. Interpreted by me. Administered Medications: 18:27 Drug: Furosemide IVP 40 mg IVP once; give over 2 minutes Route: IVP; Site: right kj2 antecubital; 18:53 Follow up: Response: No adverse reaction kj2 Disposition Summary: 11/03/23 19:21 Hospitalization Ordered Notes: Hospitalization Status: Observation rt Provider: Joe Hickey rt Location: Telemetry/MedSurg (observation) rt Condition: Stable rt Problem: new rt Symptoms: have improved rt Bed/Room Type: Standard rt Room Assignment: 221(11/03/23 20:22) jb4 Diagnosis - Dyspnea rt - Pulmonary edema rt Forms: - Medication Reconciliation Form rt - SBAR form rt - Leadership Thank You Letter rt Signatures: Dispatcher [employer] Yonatan Garsia, RN RN jb4 Willard Mackey MD MD rt Kandice Alanis, RN RN cm10 Nataliia Prakash, RN RN kj2 Corrections: (The following items were deleted from the chart) 15:52 15:52 BASIC METABOLIC PANEL+C.LAB.BRZ ordered. EDMS EDMS 15:52 15:52 CBC+H.LAB.BRZ ordered. EDMS EDMS 15:52 15:52 HEPATIC FUNCTION+C.LAB.BRZ ordered. EDMS EDMS 15:52 15:52 MAGNESIUM+C.LAB.BRZ ordered. EDMS EDMS 15:52 15:52 PROBNP+C.LAB.BRZ ordered. EDMS EDMS 15:52 15:52 Troponin High Sensitivity+C.LAB.BRZ ordered. EDMS EDMS 15:52 15:52 Chest Single View+RAD.RAD.BRZ ordered. EDMS EDMS 20:22 19:21 rt jb4
--- NOTE | 2023-11-03 19:22 | ER ---
Nurse's Notes [facility] Name: Olga Santiago Age: 88 yrs Sex: Female : 1935 Arrival Date: 11/03/2023 Time: 15:21 Bed 17 Private MD: Diagnosis: Dyspnea;Pulmonary edema Presentation: 11/02 15:34 Chief complaint: Patient states: Shortness of breath that has progressively gotten cm10 worse over the last week. Pt states that it is worse when laying down. Coronavirus screen: Client denies travel out of the [place] in the last 14 days. At this time, the client does not indicate any symptoms associated with coronavirus-19. Ebola Screen: Patient denies travel to an Ebola-affected area in the 21 days before illness onset. No symptoms or risks identified at this time. Initial Sepsis Screen: Does the patient meet any 2 criteria? No. Patient's initial sepsis screen is negative. Does the patient have a suspected source of infection? No. Patient's initial sepsis screen is negative. Risk Assessment: Do you want to hurt yourself or someone else? Patient reports no desire to harm self or others. Onset of symptoms was November 03, 2023. 15:34 Method Of Arrival: Ambulatory cm10 15:34 Acuity: RACHEL 2 cm10 Triage Assessment: 15:40 General: Appears in no apparent distress. comfortable, Behavior is calm, cooperative. cm10 Neuro: No deficits noted. Level of Consciousness is awake, alert, obeys commands, Oriented to person, place, time, situation, Appropriate for age. Respiratory: No deficits noted. Airway is patent Respiratory effort is even, unlabored, Respiratory pattern is regular, symmetrical. 18:30 Respiratory: Reports shortness of breath at rest since yesterday Onset: The kj2 symptoms/episode began/occurred the patient has mild shortness of breath. Historical: - Allergies: 15:35 Clindamycin; cm10 15:35 aripiprazole; cm10 - Home Meds: 15:35 Zyrtec 10 mg Oral tablet [Active]; valsartan 80 mg oral tablet [Active]; rosuvastatin cm10 10 mg oral tablet [Active]; Cymbalta 60 mg oral capsule,delayed release (e.c.) [Active]; hydrochlorothiazide 12.5 mg Oral tablet [Active]; estradiol 0.075 mg/24 hr transdermal patch, transdermal weekly [Active]; oxycodone-acetaminophen 7.5-325 mg Oral tablet 1 tab 3 times per day [Active]; aspirin 81 mg Oral capsule [Active]; Calquence (acalabrutinib mal) 100 mg oral tablet 1 tab every 12 hours [Active]; valacyclovir 500 mg Oral tablet [Active]; allopurinol 100 mg Oral tablet [Active]; Bactrim DS 800-160 mg Oral tablet [Active]; - PMHx: 15:35 diabetes mellitus; Hypertensive disorder; LYMPHOMA; cm10 - PSHx: 15:35 Appendectomy; Cervical surgery; hysterectomy; Tonsillectomy; cm10 - Immunization history:: Adult Immunizations up to date. - Infectious Disease History:: Denies. - Social history:: Smoking status: Patient denies any tobacco usage or history of. - Family history:: not pertinent. Screenin:29 [facility] ED Fall Risk Assessment (Adult) History of falling in the last 3 months, kj2 including since admission No falls in past 3 months (0 pts) Confusion or Disorientation No (0 pts) Intoxicated or Sedated No (0 pts) Impaired Gait No (0 pts) Mobility Assist Device Used No (0 pt) Altered Elimination Yes (1 pt) Score/Fall Risk Level 0 - 2 = Low Risk. Abuse screen: Denies threats or abuse. Denies injuries from another. Nutritional screening: No deficits noted. Tuberculosis screening: No symptoms or risk factors identified. Assessment: 18:27 General: Appears in no apparent distress. Behavior is calm, cooperative. Pain: Denies kj2 pain. Neuro: Level of Consciousness is awake, alert, obeys commands, Oriented to person, place, time, situation. Cardiovascular: Patient's skin is warm and dry. Respiratory: Airway is patent Respiratory effort is even. 21:06 Cardiovascular: Rhythm is sinus rhythm. Respiratory: kj2 Vital Signs: 15:34 BP 195 / 83; Pulse 85; Resp 18; Temp 98.6(O); Pulse Ox 98% ; Weight 77.56 kg; Height 5 cm10 ft. 3 in. ; Pain 8/10; 17:22 BP 183 / 72; Pulse 82; Resp 18; Pulse Ox 100% on R/A; zm 18:28 BP 164 / 69; Pulse 78; Resp 20; Temp 97.8; Pulse Ox 94% on R/A; kj2 19:43 BP 167 / 72; Pulse 80; Resp 20; Pulse Ox 98% on R/A; kj2 21:02 BP 184 / 67; Pulse 79; Resp 20; Pulse Ox 98% on R/A; kj2 15:34 Body Mass Index 30.29 (77.56 kg, 160.02 cm) cm10 15:34 Pain Scale: Adult cm10 ED Course: 15:27 Patient arrived in ED. im 15:28 Willard Mackey MD is Attending Physician. rt 15:35 Triage completed. cm10 15:35 Arm band placed on Patient placed in waiting room. cm10 16:22 Jose Juan Tenorio, RN is Primary Nurse. rs5 16:55 Initial lab(s) drawn, by me, sent to lab. Inserted saline lock: 20 gauge in right zm antecubital area, using aseptic technique. Blood collected. Flushed with 10 mL NS. 16:55 Basic Metabolic Panel Sent. zm 16:55 CBC with Diff Sent. zm 16:55 LFT's Sent. zm 16:55 Magnesium Sent. zm 16:55 NT PRO-BNP Sent. zm 16:55 Troponin HS Sent. zm 17:23 XRAY Chest (1 view) In Process Unspecified. EDMS 17:23 Notified ED physician of vital signs. zm 18:30 Patient has correct armband on for positive identification. Bed in low position. Call kj2 light in reach. Provided Education on: call light, fall precautions. 19:21 Joe Hickey MD is Hospitalizing Provider. rt 21:06 No provider procedures requiring assistance completed. kj2 21:42 Report given to JOEL Dewitt at 2100. kj2 22:29 Patient admitted, IV remains in place. ha1 Administered Medications: 18:27 Drug: Furosemide IVP 40 mg IVP once; give over 2 minutes Route: IVP; Site: right kj2 antecubital; 18:53 Follow up: Response: No adverse reaction kj2 Medication: 18:30 VIS not applicable for this client. kj2 Outcome: 19:21 Decision to Hospitalize by Provider. rt 22:28 Admitted to Med/surg accompanied by nurse, via wheelchair, room 221, with chart, ha1 22:28 Condition: stable 22:29 Patient left the ED. ha1 Signatures: Dispatcher [employer] Marika Mcdowell Heidy RN RN ha1 Willard Mackey MD MD rt Jose Juan Tenorio RN RN rs5 Emy Corral Clarissa, RN RN cm10 Nataliia Prakash RN RN kj2
[2023-11-03] MEDS: FUROSEMIDE 40 MG/4 ML VIAL IV SCH (19:27)
[2023-11-03] MEDS ORDERED: ALPRAZOLAM 0.25 MG TABLET PO PRN (22:48)
[2023-11-03] MEDS: AZITHROMYCIN IV 500 MG in NA CHLORIDE 0.9% 250 ML IVPB SCH (23:41)
[2023-11-03] MEDS: CEFEPIME 2 GM in NA CHLORIDE 0.9% 100 ML IV SCH (23:41)
[2023-11-03 23:44] LABS: Specific Gravity 1.007 (1.005-1.030); Sqamous Epithelial <5 /HPF (None Seen); Urine Bacteria None Seen /HPF (<20); Urine Bilirubin NEGATIVE (Negative); Urine Blood Negative (Negative); Urine Clarity Clear (Clear); Urine Color Light-Yellow (Yellow); Urine Crystals Unidentified Few /HPF (None Seen); Urine Culture Reflex Order NOT NEEDED; Urine Glucose NEGATIVE (Negative); Urine Ketones NEGATIVE (Negative); Urine Microscopic Reflex YN ORDER UMIC; Urine Nitrite NEGATIVE (Negative); Urine Protein NEGATIVE (Negative); Urine RBC <5 /HPF (None Seen); Urine Urobilinogen Normal (Normal); Urine WBC <5 /HPF (<5)
[2023-11-04 00:22] VITALS: BMI 30.2
[2023-11-04 04:55] LABS: Absolute Basophils 0.1 K/uL (0-0.5); Absolute Eosinophils 0.4 K/uL (0-0.5); Absolute Lymphocytes (CBC) 11.7 K/uL (0.7-4.9); Absolute Neutrophil 5.5 K/uL (1.8-8.0); Basophils % 0.3 % (0-1.3); Eosinophils % 2.1 % (0-4.4); Hematocrit 23.2 % (36.0-45.0); Hemoglobin 7.8 g/dL (12.0-15.0); Lymphocytes % 62.7 % (15.3-44.8); MCH 33.8 pg (27.0-35.0); MCHC 33.5 g/dL (32.0-36.0); MPV 7.5 fL (7.6-11.3); Monocytes % 5.6 % (3.3-12.3); Neutrophils % 29.3 % (41.7-73.7); Platelets 212 thou/uL (152-406); Red Cell Distribution Width 13.9 % (12.1-15.2)
[2023-11-04 05:20] LABS: Magnesium 2.2 mg/dL (1.6-2.4); Troponin High Sensitivity 11.4 pg/mL (<58.9)
[2023-11-04] MEDS: METOPROLOL TAR 25 MG TAB PO SCH (06:08)
[2023-11-04] MEDS: ASPIRIN EC 81 MG TAB PO SCH (08:53)
[2023-11-04] MEDS: VALSARTAN 80 MG TAB PO SCH (08:53)
[2023-11-04] MEDS: DULOXETINE 30 MG CAP PO SCH (08:53)
[2023-11-04] MEDS: CETIRIZINE HCL 5 MG TABLET PO SCH (08:53)
[2023-11-04] MEDS: ENOXAPARIN 40 MG/0.4 ML SQ SCH (08:55)
[2023-11-04 08:59] LABS: Differential Total Cells Count 100; Lymphocytes 51 % (15-42); Monocytes 3 % (0-10); Segmented Neutrophils 33 % (40-80)
[2023-11-04 09:00] LABS: Anisocytosis 1+; Atypical Lymphocytes 13 %; Basophilic Stippling 1+; Blood Morphology Comment NOTED (NOT SEEN); Platelet Estimate ADEQ
--- NOTE | 2023-11-04 13:05 | P.PN ---
Subjective Date of Service: 11/04/23 Chief Complaint: Acute heart failure Pt is resting comfortably in bed. She feels better this am. Pt is taking lasix 40mg iv BID. waiting for Echo. No other complaints. Review of Systems General: Unremarkable Eyes: Unremarkable ENT: Unremarkable Respiratory: Unremarkable Cardiovascular: Edema Gastrointestinal: Unremarkable Genitourinary: Unremarkable Musculoskeletal: Unremarkable Integumentary: Unremarkable Neurological: Unremarkable Lymphatics: Unremarkable Physical Examination - Vital Signs Temperature: 97.8 F Blood Pressure: 157/70 Pulse: 87 Respirations: 16 Pulse Ox (%): 96 - Physical Exam General: Alert, In no apparent distress, Oriented x3 HEENT: Atraumatic, Normocephalic, PERRLA Neck: Supple, 2+ carotid pulse no bruit, JVD not distended Respiratory: Clear to auscultation bilaterally, Normal air movement Cardiovascular: No edema, Normal pulses, Regular rate/rhythm, Normal S1 S2 Capillary refill: <2 Seconds Gastrointestinal: Normal bowel sounds, Soft and benign, Non-distended Musculoskeletal: No clubbing, No swelling, No contractures Integumentary: No rashes, No breakdown, No significant lesion Neurological: Normal gait, Normal speech, Normal strength at 5/5 x4 extr Lymphatics: No axilla or inguinal lymphadenopathy - Studies Laboratory Data (last 24 hrs) 11/03/23 11/03/23 16:51 16:51 WBC 21.20 H Hgb 8.4 L Hct 25.5 L Plt Count 222 Sodium 138 Potassium 4.7 BUN 18 Creatinine 0.95 Glucose 92 Magnesium 2.6 H Total Bilirubin 0.4 AST 17 ALT 30 Alkaline Phosphatase 59 Assessment And Plan - Plan New onset CHF: BNP 2034. Will continue lasix 40mg iv BID, strict I/O and daily weight. Will f/u Echo. Htn: Continue metoprolol and valsartan DM II: Continue accuchek, SSI and ADA diet. Lymphoma: Continue to f/u with Oncologist in clinic. Leukocytosis: WBC is improving. 18 <- 21.2. Continue empiric cefepime and azithro. DVT ppx: lovenox Code: full
[2023-11-04] MEDS: ONDANSETRON 4 MG/2 ML VIAL IV PRN (16:29)
--- NOTE | 2023-11-04 17:04 | P.CNS ---
Date of Consult: 11/04/23 Chief Complaint: Acute heart failure History of Present Illness: Patient with PMH of HTN, presented with worsening SOB and lower extremities swelling for the last few days, denies chest pain, no palpitations, no syncope. Allergies aripiprazole Allergy (Verified 11/03/23 22:05) Anaphylaxis clindamycin Allergy (Verified 11/03/23 22:05) Anaphylaxis Home medications list reviewed: Yes Home Medications: Acalabrutinib Maleate [Calquence] 100 mg PO BID 11/04/23 Allopurinol 100 mg PO DAILY 11/04/23 Aspirin [Aspirin EC] 81 mg PO DAILY 11/04/23 Cetirizine HCl [Zyrtec] 10 mg PO DAILY 11/04/23 Duloxetine HCl [Cymbalta] 60 mg PO BID 11/04/23 Ondansetron [Zofran] 4 mg PO Q4H PRN 11/04/23 Oxycodone HCl/Acetaminophen [Oxycodone-Acetaminophn 7.5-325] 1 each PO BID 11/04/23 Rosuvastatin [Crestor] 10 mg PO BEDTIME 11/04/23 Sulfamethoxazole/Trimethoprim [Bactrim Ds Tablet] 1 each PO SEECOM 11/04/23 Valacyclovir [Valtrex] 500 mg PO DAILY 11/04/23 Valsartan 80 mg PO DAILY 11/04/23 estradioL [Estradiol (Twice Weekly)] 0.075 mg TD SEECOM 11/04/23 - Past Medical/Surgical History Diabetic: Yes -: lymphoma -: DM -: hypertensive disorder -: appendectomy -: cervical sx -: hysterectomy -: tonsillectomy - Social History Alcohol use: No CD- Drugs: No Caffeine use: Yes Place of Residence: Home Review of Systems 10-point ROS is otherwise unremarkable Physical Examination Temp Pulse Resp BP Pulse Ox 97.7 F 87 16 157/70 H 98 11/04/23 16:00 11/04/23 16:29 11/04/23 16:00 11/04/23 16:29 11/04/23 16:00 General: Alert, In no apparent distress HEENT: Atraumatic, PERRLA, Mucous membr. moist/pink, EOMI, Sclerae nonicteric Neck: Supple, 2+ carotid pulse no bruit, No LAD, Without JVD or thyroid abnormality Respiratory: Clear to auscultation bilaterally, Normal air movement Cardiovascular: Regular rate/rhythm, Normal S1 S2 Gastrointestinal: Normal bowel sounds, No tenderness Musculoskeletal: No tenderness Integumentary: No rashes Neurological: Normal gait, Normal speech, Normal tone, Normal affect Lymphatics: No axilla or inguinal lymphadenopathy Laboratory Data (last 24 hrs) 11/03/23 11/03/23 16:51 16:51 WBC 21.20 H Hgb 8.4 L Hct 25.5 L Plt Count 222 Sodium 138 Potassium 4.7 BUN 18 Creatinine 0.95 Glucose 92 Magnesium 2.6 H Total Bilirubin 0.4 AST 17 ALT 30 Alkaline Phosphatase 59 - Problems (1) Bilateral lower extremity edema Current Visit: Yes Status: Acute Plan: agree with IV lasix 40 mg BID Monitor input and output monitor and correct electrolytes (2) HTN (hypertension) Current Visit: Yes Status: Acute Plan: continue Vlasartan 80 lopressor 25 mg po BID get Echo
[2023-11-04] MEDS: ROSUVASTATIN 10 MG TAB PO SCH (20:49)
[2023-11-05 06:44] LABS: Absolute Basophils 0.1 K/uL (0-0.5); Absolute Eosinophils 0.3 K/uL (0-0.5); Absolute Lymphocytes (CBC) 15.9 K/uL (0.7-4.9); Absolute Monocytes 1.2 K/uL (0.1-1.3); Absolute Neutrophil 5.9 K/uL (1.8-8.0); Basophils % 0.4 % (0-1.3); Eosinophils % 1.4 % (0-4.4); Hematocrit 25.3 % (36.0-45.0); Hemoglobin 8.4 g/dL (12.0-15.0); MCH 33.9 pg (27.0-35.0); MCHC 33.3 g/dL (32.0-36.0); MCV 101.9 fL (80-100); MPV 7.7 fL (7.6-11.3); Neutrophils % 25.2 % (41.7-73.7); Nucleated RBC Absolute Count 0.1 (0-0); Nucleated Red Blood Cells % 0.3 % (0-0); Platelets 229 thou/uL (152-406); RBC Red Blood Cell Count 2.49 M/uL (3.86-4.86); Red Cell Distribution Width 14.2 % (12.1-15.2)
[2023-11-05 06:56] LABS: Anion Gap 11.4 mEq/L (5.0-15.0); Magnesium 2.2 mg/dL (1.6-2.4); Potassium 4.4 mEq/L (3.5-5.1)
[2023-11-05] MEDS: ACETAMINOPHEN 500 MG TAB PO PRN (09:34)
--- NOTE | 2023-11-05 11:07 | P.PN ---
Subjective Date of Service: 11/05/23 Chief Complaint: Acute heart failure Pt is resting comfortably in bed. She feels better this am. Pt is taking lasix 40mg iv BID. Fluid balance is +150 cc. waiting for Echo. No other complaints. Review of Systems General: Unremarkable Eyes: Unremarkable ENT: Unremarkable Respiratory: Unremarkable Cardiovascular: Unremarkable Gastrointestinal: Unremarkable Genitourinary: Unremarkable Musculoskeletal: Unremarkable Integumentary: Unremarkable Neurological: Unremarkable Lymphatics: Unremarkable Physical Examination - Vital Signs Temperature: 98 F Blood Pressure: 139/63 Pulse: 78 Respirations: 16 Pulse Ox (%): 94 - Physical Exam General: Alert, In no apparent distress, Oriented x3 HEENT: Atraumatic, Normocephalic, PERRLA Neck: Supple, 2+ carotid pulse no bruit, JVD not distended Respiratory: Clear to auscultation bilaterally, Normal air movement Cardiovascular: No edema, Normal pulses, Regular rate/rhythm, Normal S1 S2, Edema Capillary refill: <2 Seconds Gastrointestinal: Normal bowel sounds, Soft and benign, Non-distended Musculoskeletal: No clubbing, No swelling, No contractures Integumentary: No rashes, No breakdown, No significant lesion Neurological: Normal gait, Normal speech, Normal strength at 5/5 x4 extr Lymphatics: No axilla or inguinal lymphadenopathy Assessment And Plan - Plan New onset CHF: BNP 2674 <- 2035. Will continue lasix 40mg iv BID, strict I/O and daily weight. Fluid balance is +150. Will f/u Echo. Htn: Continue metoprolol and valsartan DM II: Continue accuchek, SSI and ADA diet. Lymphoma: Continue to f/u with Oncologist in clinic. Leukocytosis: WBC is improving. 23.4<- 18 <- 21.2. Continue empiric cefepime and azithro. DVT ppx: lovenox Code: full Dispo: Pending hospital course.
[2023-11-05] MEDS: SPIRONOLACTONE 25 MG TABLET PO SCH (12:57)
[2023-11-05] MEDS: PNEUMOCOCCAL VACCINE 0.5 ML IMVAC ONE (16:00)
--- NOTE | 2023-11-05 16:31 | EKG ---
Test Date: 2023-11-03 Test Time: 17:11:01 Pet Adoption Counselor: KEVIN MEASUREMENT RESULTS: Intervals: Rate: 81 NE: 148 QRSD: 92 QT: 384 QTc: 446 [place]: P: 72 NE: 148 QRS: 68 T: 67 INTERPRETIVE STATEMENTS: Normal sinus rhythm Normal ECG Compared to ECG 08/12/2023 13:23:24 T-wave abnormality no longer present Electronically Signed On 11-05-23 16:30:00 CDT by Guilherme Reeves
--- NOTE | 2023-11-05 17:10 | P.PN ---
Subjective Date of Service: 11/05/23 Chief Complaint: Acute heart failure Subjective: No new changes, No C/O voiced, Tolerating diet, Ambulating, Improving Review of Systems 10-point ROS is otherwise unremarkable Physical Examination - Vital Signs Temperature: 98.5 F Blood Pressure: 178/77 Pulse: 84 Respirations: 17 Pulse Ox (%): 95 - Physical Exam General: Alert, In no apparent distress HEENT: Atraumatic, PERRLA, EOMI Neck: Supple, JVD not distended Respiratory: Clear to auscultation bilaterally, Normal air movement Cardiovascular: Regular rate/rhythm, Normal S1 S2 Gastrointestinal: Normal bowel sounds, No tenderness Musculoskeletal: No tenderness Integumentary: No rashes Neurological: Normal speech, Normal tone, Normal affect Lymphatics: No axilla or inguinal lymphadenopathy - Studies Medications List Reviewed: Yes Assessment And Plan - Current Problems (Diagnosis) (1) Bilateral lower extremity edema Current Visit: Yes Status: Acute Plan: IV lasix 40 mg BID for one more day Monitor input and output monitor and correct electrolytes (2) HTN (hypertension) Current Visit: Yes Status: Acute Plan: continue Vlasartan 80 lopressor 25 mg po BID add spirnolaconte 25 mg daily get Echo
[2023-11-05] MEDS: hydroCHLOROthiazide 25 MG TAB PO SCH (18:32)
[2023-11-05] MEDS: carvediloL 12.5 MG TAB PO SCH (21:04)
[2023-11-05] MEDS: Oxycodone HCl/Acetaminophen 5/325 MG TAB PO SCH (22:29)
[2023-11-06 05:22] LABS: Absolute Basophils 0.1 K/uL (0-0.5); Absolute Eosinophils 0.3 K/uL (0-0.5); Absolute Lymphocytes (CBC) 14.5 K/uL (0.7-4.9); Absolute Monocytes 1.1 K/uL (0.1-1.3); Absolute Neutrophil 6.1 K/uL (1.8-8.0); Basophils % 0.3 % (0-1.3); Eosinophils % 1.2 % (0-4.4); Hematocrit 25.5 % (36.0-45.0); Hemoglobin 8.5 g/dL (12.0-15.0); MCH 33.6 pg (27.0-35.0); MCHC 33.3 g/dL (32.0-36.0); MCV 100.9 fL (80-100); MPV 7.6 fL (7.6-11.3); Neutrophils % 27.5 % (41.7-73.7); Platelets 211 thou/uL (152-406); RBC Red Blood Cell Count 2.53 M/uL (3.86-4.86)
[2023-11-06 05:46] LABS: Anion Gap 8.8 mEq/L (5.0-15.0); Magnesium 1.8 mg/dL (1.6-2.4); Potassium 3.8 mEq/L (3.5-5.1); Troponin High Sensitivity 12.7 pg/mL (<58.9)
--- NOTE | 2023-11-06 07:07 | ECHO ---
HEIGHT: 5 ft 3 in WEIGHT: 171 lb 0 oz DATE OF STUDY: 11/04/[address]: Opal Tapia INFORMATION TECHNOLOGY SPECIALISTBruno 2-DIMENSIONAL: YES M.MODE: YES DOPPLER: YES COLOR FLOW: YES TDS: PORTABLE: YES DEFINITY: BUBBLE STUDY: DIAGNOSIS: CONGESTIVE HEART FAILURE CARDIAC HISTORY: CATHERIZATION: NO SURGERY: NO PROSTHETIC VALVE: NO PACEMAKER: NO MEASUREMENTS (cm) DIASTOLIC (NORMALS) SYSTOLIC (NORMALS) IVSd 0.9 (0.6-1.2) LA Diam 3.7 (1.9-4.0) LVEF 60-65% LVIDd 4.5 (3.5-5.7) LVIDs 2.7 (2.0-3.5) %FS 39% LVPWd 1.0 (0.6-1.2) Ao Diam 3.0 (2.0-3.7) 2 DIMENSIONAL ASSESSMENT: RIGHT ATRIUM: NORMAL LEFT ATRIUM: MILD DILATED RIGHT VENTRICLE: NORMAL LEFT VENTRICLE: NORMAL TRICUSPID VALVE: MILD TRICUSPID REGURGITATION MITRAL VALVE: MILD MITRAL REGURGITATION PULMONIC VALVE: NORMAL AORTIC VALVE: MILD AORTIC STENOSIS PERICARDIAL EFFUSION: NONE AORTIC ROOT: MILD DILATED LEFT VENTRICULAR WALL MOTION: NORMAL DOPPLER/COLOR FLOW: GRADE II DIASTOLIC DYSFUNCTION COMMENTS: 1. NORMAL LEFT VENTRICULAR SYSTOLIC FUNCTION, EJECTION FRACTION 60-65%, NORMAL WALL MOTION 2. MILD TO MODERATE DILATED LEFT ATRIUM 3. MILD MITRAL REGURGITATION 4. GRADE II DIASTOLIC DYSFUNCTION 5. MODERATE PULMONARY HYPERTENSION (RIGHT VENTRICULAR SYSTOLIC PRESSURE 55-60 mmHg) 6. NORMAL FILLING PRESSURE TECHNOLOGIST: SHELBI COLEMAN [facility]
[2023-11-06] MEDS: MAGNESIUM SULFATE 1 gm IVPB 1 GM/100 ML BAG IV ONE (07:32)
[2023-11-06 08:23] VITALS: O2SAT 98
[2023-11-06] MEDS: POTASSIUM CL SA 10 MEQ TAB PO ONE (08:33)
--- NOTE | 2023-11-06 11:59 | P.PN ---
Subjective Date of Service: 11/06/23 Chief Complaint: Acute heart failure Subjective: No new changes, No C/O voiced, Tolerating diet, Ambulating, Improving Review of Systems 10-point ROS is otherwise unremarkable Physical Examination - Vital Signs Temperature: 97.2 F Blood Pressure: 139/67 Pulse: 83 Respirations: 16 Pulse Ox (%): 96 - Physical Exam General: Alert, In no apparent distress HEENT: Atraumatic, PERRLA, EOMI Neck: Supple, JVD not distended Respiratory: Clear to auscultation bilaterally, Normal air movement Cardiovascular: Regular rate/rhythm, Normal S1 S2 Gastrointestinal: Normal bowel sounds, No tenderness Musculoskeletal: No tenderness Integumentary: No rashes Neurological: Normal speech, Normal tone, Normal affect Lymphatics: No axilla or inguinal lymphadenopathy - Studies Medications List Reviewed: Yes Assessment And Plan - Current Problems (Diagnosis) (1) Bilateral lower extremity edema Current Visit: Yes Status: Acute Plan: Echo shows Grade 2 DD with moderate pulmonary hypertension switch Lasix to 40 mg po daily until she follows in clinic (2) HTN (hypertension) Current Visit: Yes Status: Acute Plan: continue Vlasartan 80 spirnolaconte 25 mg daily Resume her home dose Coreg on discharge continue HCTZ 25 mg daily
[2023-11-06 12:26] VITALS: BP 163/99; TEMP 97.3
--- NOTE | 2023-11-06 12:43 | P.DS ---
Admission Date: 11/03/23 Discharge Date: 11/06/23 Disposition: ROUTINE DISCHARGE Discharge Condition: GOOD Reason for Admission: Acute heart failure Brief History of Present Illness: 88-year-old female with a past medical history of hypertension, diabetes, lymphoma, presents to the emergency room with shortness of breath. She reports shortness of breath worse when lying flat, worse with exertion, she reports started 1 week ago with progressively getting worse. She reports lower extremity edema she denies history of congestive heart failure. She denies fever, nausea vomiting diarrhea, chest pain, dizziness. Fever, plan to admit to [facility] for new onset acute heart failure with cardiology to consult. EKG s 81 beats/min. Rhythm is regular, Normal Sinus Rhythm with No ectopy. QRS [place] is Normal. CA interval is normal. QRS interval is normal. QT interval is normal. No Q waves. T waves are Normal. No ST changes noted. Vital signs on ER evaluation hypertensive urgency 4 BP 195 / 83; Pulse 85; Resp 18; Temp 98.6(O); Pulse Ox 98% ; Weight 77.56 kg; Height 5 cm, she was treated with Lasix 40 IV x 1 ft. 3 in. ; Pain 8/10; laboratory evaluation BNP 1873, 2035, leukocytosis 21.20, Hospital Course: Pt is an 88yo female with past medical history of hypertension, diabetes, and lymphoma who presented with shortness of breath and leg edema. Pt also complained of shortness of breath when lying flat. On admission, lab studies showed BNP 1873, 2035, leukocytosis 21.20. We admitted pt for new onset CHF. we gave lasix 40mg iv BID and consulted Cardology. Echo showed EF 60 - 65% with grade II diastolic dysfunction and pulm htn. Cardiology optimized cardiac meds and continued metoprolol, valsartan, spironolactone and HCTZ. We also gave empiric cefepime and azithro for leukocytosis. This is chronic, per Pt. We continued home med for other chronic medical problems. Pt was advised to take lasix 40mg po daily and follow up with cardiology within 1 - 2 weeks. Pt was in NAD prior to discharge. Vital Signs/Physical Exam: Temp Pulse Resp BP Pulse Ox 97.3 F 83 16 163/99 H 98 11/06/23 12:00 11/06/23 12:00 11/06/23 12:00 11/06/23 12:00 11/06/23 12:00 Laboratory Data at Discharge: WBC 22.00 thou/uL (4.3-10.9) H 11/06/23 05:01 Hgb 8.5 g/dL (12.0-15.0) L 11/06/23 05:01 Hct 25.5 % (36.0-45.0) L 11/06/23 05:01 Plt Count 211 thou/uL (152-406) 11/06/23 05:01 Sodium 135 mEq/L (136-145) L 11/06/23 05:01 Potassium 3.8 mEq/L (3.5-5.1) D 11/06/23 05:01 BUN 29 mg/dL (7-18) H 11/06/23 05:01 Creatinine 1.33 mg/dL (0.55-1.02) H 11/06/23 05:01 Glucose 139 mg/dL (74-106) H 11/06/23 05:01 Magnesium 1.8 mg/dL (1.6-2.4) 11/06/23 05:01 Total Bilirubin 0.4 mg/dL (0.2-1.0) 11/03/23 16:51 AST 17 U/L (15-37) 11/03/23 16:51 ALT 30 U/L (13-56) 11/03/23 16:51 Alkaline Phosphatase 59 U/L (45-117) 11/03/23 16:51 Triglycerides 51 mg/dL (<150) 11/04/23 04:33 Cholesterol 80 mg/dL (<200) 11/04/23 04:33 HDL Cholesterol 45 mg/dL (40-60) 11/04/23 04:33 Cholesterol/HDL Ratio 1.78 11/04/23 04:33 Home Medications: Acalabrutinib Maleate [Calquence] 100 mg PO BID 11/04/23 Allopurinol 100 mg PO DAILY 11/04/23 Aspirin [Aspirin EC] 81 mg PO DAILY 11/04/23 Cetirizine HCl [Zyrtec] 10 mg PO DAILY 11/04/23 Duloxetine HCl [Cymbalta] 60 mg PO BID 11/04/23 Ondansetron [Zofran (Odt)*] 4 mg PO Q4H PRN 11/04/23 Oxycodone HCl/Acetaminophen [Oxycodone-Acetaminophn 7.5-325] 1 each PO TID 11/04/23 Rosuvastatin [Crestor*] 10 mg PO BEDTIME 11/04/23 Valacyclovir [Valtrex*] 500 mg PO DAILY 11/04/23 Valsartan 80 mg PO DAILY 11/04/23 estradioL [Estradiol (Twice Weekly)] 0.075 mg TD SEECOM 11/04/23 Furosemide [Lasix] 40 mg PO DAILY 60 Days #60 tab 11/06/23 Spironolactone [Aldactone*] 25 mg PO DAILY 60 Days #60 tab 11/06/23 carvediloL [Coreg*] 12.5 mg PO BID 6AM 6PM 30 Days #60 tab 11/06/23 hydroCHLOROthiazide [Hydrodiuril*] 25 mg PO DAILY 60 Days #60 tab 11/06/23 New Medications: Spironolactone [Aldactone*] 25 mg PO DAILY 60 Days #60 tab carvediloL [Coreg*] 12.5 mg PO BID 6AM 6PM 30 Days #60 tab hydroCHLOROthiazide [Hydrodiuril*] 25 mg PO DAILY 60 Days #60 tab Furosemide [Lasix] 40 mg PO DAILY 60 Days #60 tab Physician Discharge Instructions: Follow up with an Internal Medicine Physician of your choice: WEDNIE MORAN MD [address] [facility], [address] [place] [address] ACCEPTING NEW PATIENTS! KATIA RUIZ MD [address], [place] [address] CORBY GUALLPA MD [address] [place] [address] CAROL ALDANA MD [address] [facility] [place] [address] FLY THURMAN MD [address] [place] [address] Diet: AHA Activity: Ad jh Followup: Inga Juarez [Primary Care Provider] - Simon Kerns MD [ACTIVE - CAN ADMIT] -
== END 2023-11-06 15:15 | disposition home or self-care (01) | DRG 291 ==
LOC: ER 15:21 → ERHOLD 19:22 → 2ND 22:13
PROVIDERS: ADMIT Hospitalist; ATTEND Hospitalist
DX: I11.0 Hypertensive heart disease with heart failure (principal); I50.31 Acute diastolic (congestive) heart failure; J96.01 Acute respiratory failure with hypoxia; C85.90 Non-Hodgkin lymphoma, unspecified, unspecified site; E11.9 Type 2 diabetes mellitus without complications; I16.0 Hypertensive urgency; I27.20 Pulmonary hypertension, unspecified; Z88.1 Allergy status to other antibiotic agents; Z79.82 Long term (current) use of aspirin; Z79.02 Long term (current) use of antithrombotics/antiplatelets; Z90.49 Acquired absence of other specified parts of digestive tract; Z90.710 Acquired absence of both cervix and uterus; Z79.899 Other long term (current) drug therapy
CPT/HCPCS: 36415; 71045; 80048; 80061; 80076; 81001; 82947; 83735; 83880; 84484; 85025; 93005; 93306; 94760; 96374; 99285; J0692; J1650; J1940; J2405; J3475; J7050

== ENCOUNTER 2024-12-10 12:35 | Emergency (ER) | payer OTHER ==
--- OUTSIDE RECORDS SUMMARY | 2024-12-10 12:40 | XMS REPORT | Clinical Summary ---
Author Name Unknown Organization [facility] Address [address] [place] [address] Care Team Providers Care Production Engine Repairer Name Role Phone Taylor Swanson Unavailable [phone] Humaira Rahman MD Unavailable Kenny Estevez MD Primary Care Provider [phone] Salinas Baptiste MD Unavailable [phone] Mary Serna MD Unavailable Inga Juarez NP Unavailable Armani Sanders MD Unavailable [phone] Carleen Rice RN Unavailable [phone] Allergies Active Allergy Reactions Criticality Noted Date Comments Aripiprazole Diarrhea 04/03/2023 Diarrhea for 10 days Clindamycin Anaphylaxis High 05/28/2021 Medications * This document contains information received from the source organization and may not represent a complete record from that organization. pantoprazole (PROTONIX) 40 mg EC tablet Take 1 tablet (40 mg) by mouth daily. 021 Active levothyroxine sodium (LEVOTHROID ORAL) Take 50 mcg by mouth at bedtime. Active estradioL (CLIMARA) 0.075 mg/[address] 1 patch on the skin once a week. Active diclofenac sodium (Voltaren) 1 % gel Apply topically as needed. Active aspirin 81 mg EC tablet Take 1 tablet (81 mg) by mouth daily. Active vit A/vit C/vit E/zinc/copper (PRESERVISION AREDS ORAL) Take 1 capsule by mouth twice daily. Active multivit-min/iron /folic/lutein (CENTRUM SILVER WOMEN ORAL) Take 1 tablet [...] mouth 3 (three) times a day. Active biotin 5 mg tab Take 1 tablet by mouth every evening. Active fexofenadine (DARIEN) 180 mg tablet Take 0.5 tablets (90 mg) by mouth daily. Active Calquence 100 mg capsule Take 1 capsule (100 mg) by mouth twice daily. Active valACYclovir (VALTREX) 500 mg tablet Take 1 tablet (500 mg) by mouth daily. Active allopurinol (ZYLOPRIM) 100 mg tablet Take 1 tablet (100 mg) by mouth daily. Active ondansetron (ZOFRAN-ODT) 4 mg disintegrating tablet Dissolve 1 tablet (4 mg) on the tongue every 6 (six) hours as needed. Active metoprolol tartrate (LOPRESSOR) 25 mg tablet Take 1 tablet (25 mg) by mouth twice daily. Active sulfamethoxazole- trimethoprim (BACTRIM DS) 800 mg-160 mg per tablet Take 1 tablet by mouth 3 (three) times a week Friday, Friday and Friday. Active valsartan (DIOVAN) 80 mg tablet Take 1 tablet (80 mg) by mouth daily. Active rosuvastatin (CRESTOR) 10 mg tablet Take 1 tablet (10 mg) by mouth at bedtime. Active DULoxetine (Cymbalta) 60 mg capsuleIndication s:Stress and adjustment reaction Take 1 capsule (60 mg) by mouth twice daily. 180 capsule 1 Active doxycycline monohydrate (MONODOX) 100 MG capsule Take 1 capsule (100 mg) by mouth twice daily. Active lidocaine (LIDODERM) 5% (700 mg/patch) transdermal patch Place 1 patch on the skin daily as needed. Active acetaminophen-cod eine (TYLENOL #3) 300 mg-30 mg tablet Take 1 tablet by mouth every 4 (four) hours as needed. Active acalabrutinib (CALQUENCE) 100 mg tabletIndications :Low grade B-cell lymphoma Take 1 tablet (100 mg) by mouth twice daily. 60 tablet 3 Active carvedilol (COREG CR) 40 mg 24 hr capsule Take 1 capsule (40 mg) by mouth at bedtime. 2024 Discontinued(T herapy completed) cetirizine (ZyrTEC) 10 mg tablet Take 1 tablet (10 mg) by mouth daily. 2024 Discontinued(T herapy completed) oxyCODONE-acetami nophen (PERCOCET) 7.5-325 mg per tablet Take 1 tablet by mouth every 6 (six) hours as needed for severe pain or moderate pain. 022 2024 Discontinued docusate sodium (STOOL SOFTENER ORAL) Take 2 tablets by mouth at bedtime. 2024 Discontinued melatonin 3 mg cap Take 1 capsule by mouth daily. 2023 Discontinued(O ther/Not Applicable) DULoxetine (Cymbalta) 60 mg capsuleIndication s:Stress and adjustment reaction Take 1 capsule (60 mg) by mouth twice daily. 60 capsule 3 024 2023 Discontinued(R eorder) hydroCHLOROthiazi de 12.5 mg tablet Take 2 tablets (25 mg) by mouth every morning. 024 2024 Discontinued(T herapy completed) DULoxetine (Cymbalta) 60 mg capsuleIndication s:Stress and adjustment reaction Take 1 capsule (60 mg) by mouth twice daily. 60 capsule 3 024 2023 Discontinued(R eorder) DULoxetine (Cymbalta) 60 mg capsuleIndication s:Stress and adjustment reaction Take 1 capsule (60 mg) by mouth twice daily. 60 capsule 3 024 2024 Discontinued(R eorder) melatonin 5 mg tab tabletIndications :Insomnia, not otherwise specified Take 1 tablet (5 mg) by mouth at bedtime. 90 tablet 3 024 2024 Discontinued(T herapy completed) DULoxetine (Cymbalta) 60 mg capsuleIndication s:Stress and adjustment reaction Take 1 capsule (60 mg) by mouth twice daily. 180 capsule 1 025 2024 Discontinued(R eorder) DULoxetine (Cymbalta) 60 mg capsuleIndication s:Stress and adjustment reaction Take 1 capsule (60 mg) by mouth twice daily. 180 capsule 1 025 2024 Discontinued(R eorder) patiromer (Veltassa) 8.4 gram pwpk oral powder packetIndications :Low grade B-cell lymphoma Take 1 packet (8.4 g) by mouth daily. Mixing Instruction: Immediately prior to administration , measure 1/3 cup of water and pour half into an empty glass; empty entire contents of 1 packet (8.4 gm) into the glass and stir. Add the remaining water to the mixture; stir thoroughly (powder will not dissolve and the mixture will look cloudy) and drink immediately once daily. If powder remains in the glass after drinking, add more water, stir, and drink again to ensure entire dose is taken. 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 Hemodynamically and clinically patient is stable to improved with significant improvement in her potassium. In the meantime, she can resume her Acalabrutinib. Follow up: 4-5 months with repeat labs and imaging Assessment & Plan (11/20/2023 2:39 PM CDT): Results were reviewed and discussed with patient. Hemodynamically patient has electrolyte abnormalities that warrant urgent evaluation. Clinically patient is stable but is dizziness. Radiographically patient is in remission and is stable from lymphoma standpoint. However, due to her electrolyte abnormalities, she will be sent to [facility] for urgent evaluation and IV fluid replacement. She will remain on Acalabrutinib per Dr. Estevez at same dose and administration. Follow up: 6 months with repeat labs and imaging Assessment & Plan (11/22/2021 4:43 PM CDT): Patient is on treatment since 05/2021 consisting [...] labs only (no imaging) Syncope 06/01/2021 Encounters * This document contains information received from the source organization and may not represent a complete record from that organization. Date Type Department Care Team Description 09/27/2024 11:00 AM CDT [facility] [address] [place] [address], [address] [place] [address] Kenny Estevez MD Low grade B-cell lymphoma (Primary Dx); Vzoga-rh-xtjsrle renal failure; Anemia in neoplastic disease 09/27/2024 8:47 AM CDT - 09/27/2024 11:59 PM CDT [facility] [address] [place] [id number] Krystina Ritter PA-C Low grade B-cell lymphoma Discharge Disposition: Home 09/27/2024 Travel 06/02/2024 Documentation Case Management [address] [place] [address] Mattie Sanchez RN 04/29/2024 1:30 PM AGRICULTURAL PURCHASING AGENT [facility] [address] [place] [address], [address] [place] [address] Kenny Estevez MD Low grade B-cell lymphoma (Primary Dx); Anemia in neoplastic disease; Ldecg-fi-mlbjunx renal failure; Symptomatic lymphocytosis 04/29/2024 7:38 AM AGRICULTURAL PURCHASING AGENT - 04/29/2024 11:59 PM AGRICULTURAL PURCHASING AGENT Hospital Encounter [facility] [address] [place] [address], [address] [place] [address] Kaitlin Gupta PA Low grade B-cell lymphoma Discharge Disposition: Home 04/29/2024 7:24 AM AGRICULTURAL PURCHASING AGENT - 04/29/2024 7:37 AM AGRICULTURAL PURCHASING AGENT [facility] [address] [place] [id number] Kaitlin Gupta PA Low grade B-cell lymphoma Discharge Disposition: Home 04/29/2024 Travel 12/16/2023 Telephone [facility] [address] [place] [phone] Carleen Rice, [facility] Follow Up after 12/11/2023 Immunizations Immunization Administration Dates Next Due Influenza, split virus, triv alent, preservative 11/24/2023,01/08/2021 Pfizer SARS-CoV-2 Bivalent V accine 12+ y.o. (30 mcg/0.3 mL) 06/26/2023 Pfizer SARS-CoV-2 Vaccination (Purple Cap) 05/15 Pneumococcal Conjugate 13-Valent 07/24/2023,12/23,12/20/2015 Surgical History Surgery Date Site/Laterality Comments APPENDECTOMY [...] while malou g time ago had shot 12-01-21/second shot due Gastric reflux Don t remember. Polyp of colon In my sinus. History of recurrent urinary tract infection Years ago . Urinary incontinence About 2011 Use pads . Anemia [address] Gaitan found i n my blood work. Blood transfusion, without reported diagnosis 12 May 2021 Gave to me after my fall at [facility] in [facility] Arthritis Osteoarthritis Diabetes mellitus 1981/ when I [...] Date Smoking Tobacco: Never Smokeless Tobacco: Never Tobacco Cessation:Counseling Given: Not Answered Comments:I have never smoked. Alcohol Use Standard Drinks/Week Comments Not Currently 0 (1 standard drink = 0.6 oz pur e alcohol) Occasionally. Comments No Sex and Gender Information Value Date Recorded Sex Assigned at Female 06/08/2021 1:20 PM CDT Legal Sex Female 10:11 AM AGRICULTURAL PURCHASING AGENT Gender Identity Female 06/08/2021 1:20 PM CDT Sexual Orientation Straight 06/08/2021 1: 22 PM CDT Obstetrics History Last Filed Vital Signs Vital Sign Reading Time Taken Comments Blood Pressure 150/69 09/27/2024 10:25 AM CDT Pulse 84 09/27/2024 10:25 AM CDT Temperature 36.6 °C (97.9 °F) 09/27/2024 10:25 AM C DT Respiratory Rate 17 09/27/2024 10:25 AM CDT Oxygen Saturation 99% 09/27/2024 10:25 AM CDT Inhaled Oxygen Concentration - - Weight 75.1 kg (165 lb 9.1 oz) 09/27/2024 10:21 AM CDT Height - - Body Mass Index 30.08 11/13/2023 10:50 PM CDT Plan of Treatment Health Maintenance Due Date Last Done Comments Pneumococcal Vaccine: 50+ Ye ars (2 of 2 - PPSV23, PCV20, or PCV21) 09/18/2023 07/24/2023, 01/12/2021 , 12/20/2015 COVID-19 Vaccine ( - 2024-2 6 season) 2024 06/26/2023, 05/15/2021, 06/22/2020, Additional history exists Influenza Vaccine (#1) 2024 11/24/2023, 2020 Procedures Procedure Name Priority Date/Time Associated Diagnosis Comments DIFFERENTIAL Routine 09/27/2024 8:59 AM CDT Low grade B-cell lymphoma .CBC Routine 09/27/2024 8:59 AM CDT Low grade B-cell lymphoma ELECTROLYTE PANEL Routine 09/27/2024 8:5 9 AM CDT Low grade B-cell lymphoma ASPARTATE AMINOTRANSFERASE Routine 09/27/2024 8:59 AM CDT Low grade B-cell lymphoma MAGNESIUM LEVEL Routine 09/27/2024 8:59 AM CDT Low grade B-cell lymphoma ALANINE AMINOTRANSFERASE Routine 025 8:59 AM CDT Low grade B-cell lymphoma LACTATE DEHYDROGENASE Routine 09/27/2024 8:59 AM CDT Low grade B-cell lymphoma ALKALINE PHOSPHATASE Routine 09/27/2024 8:59 AM CDT Low grade B-cell lymphoma FRACTIONATED BILIRUBIN Routine 8:59 AM CDT Low grade B-cell lymphoma URIC ACID Routine 09/27/2024 8:59 AM CDT Low grade B-cell lymphoma CREATININE Routine 09/27/2024 8:59 AM CDT Low grade B-cell lymphoma BLOOD UREA NITROGEN Routine 09/27/2024 8 :59 AM CDT Low grade B-cell lymphoma GLUCOSE, RANDOM Routine 09/27/2024 8:59 AM CDT Low grade B-cell lymphoma PHOSPHORUS LEVEL Routine 09/27/2024 8:59 AM CDT Low grade B-cell lymphoma CALCIUM LEVEL Routine 09/27/2024 8:59 AM CDT Low grade B-cell lymphoma ALBUMIN LEVEL Routine 09/27/2024 8:59 AM CDT Low grade B-cell lymphoma TOTAL PROTEIN Routine 09/27/2024 8:59 AM CDT Low grade B-cell lymphoma COMPLETE BLOOD COUNT W/ DIFFERENTIAL Routine 09/27/2024 8:59 AM CDT Low grade B-cell lymphoma CT CHEST ABDOMEN PELVIS WO CONTRAST LYMPHOMA Routine 04/29/2024 8:44 AM AGRICULTURAL PURCHASING AGENT Low grade B-cell lymphoma CT NECK WO CONTRAST LYMPHOMA Routine 04/29/2024 8:44 AM AGRICULTURAL PURCHASING AGENT Low grade B-cell lymphoma DIFFERENTIAL Routine 04/29/2024 7:33 AM AGRICULTURAL PURCHASING AGENT Low grade B-cell lymphoma CBC PATHOLOGY REVIEW Routine 04/29/2024 7:33 AM AGRICULTURAL PURCHASING AGENT Low grade B-cell lymphoma .CBC Routine 04/29/2024 7:33 AM AGRICULTURAL PURCHASING AGENT Low grade B-cell lymphoma ELECTROLYTE PANEL Routine 04/29/2024 7:3 3 AM AGRICULTURAL PURCHASING AGENT Low grade B-cell lymphoma ASPARTATE AMINOTRANSFERASE Routine 04/29/2024 7:33 AM AGRICULTURAL PURCHASING AGENT Low grade B-cell lymphoma MAGNESIUM LEVEL Routine 04/29/2024 7:33 AM AGRICULTURAL PURCHASING AGENT Low grade B-cell lymphoma ALANINE AMINOTRANSFERASE Routine 025 7:33 AM AGRICULTURAL PURCHASING AGENT Low grade B-cell lymphoma LACTATE DEHYDROGENASE Routine 04/29/2024 7:33 AM AGRICULTURAL PURCHASING AGENT Low grade B-cell lymphoma ALKALINE PHOSPHATASE Routine 04/29/2024 7:33 AM AGRICULTURAL PURCHASING AGENT Low grade B-cell lymphoma FRACTIONATED BILIRUBIN Routine 7:33 AM AGRICULTURAL PURCHASING AGENT Low grade B-cell lymphoma URIC ACID Routine 04/29/2024 7:33 AM AGRICULTURAL PURCHASING AGENT Low grade B-cell lymphoma CREATININE Routine 04/29/2024 7:33 AM AGRICULTURAL PURCHASING AGENT Low grade B-cell lymphoma BLOOD UREA NITROGEN Routine 04/29/2024 7 :33 AM AGRICULTURAL PURCHASING AGENT Low grade B-cell lymphoma GLUCOSE, RANDOM Routine 04/29/2024 7:33 AM AGRICULTURAL PURCHASING AGENT Low grade B-cell lymphoma PHOSPHORUS LEVEL Routine 04/29/2024 7:33 AM AGRICULTURAL PURCHASING AGENT Low grade B-cell lymphoma CALCIUM LEVEL Routine 04/29/2024 7:33 AM AGRICULTURAL PURCHASING AGENT Low grade B-cell lymphoma ALBUMIN LEVEL Routine 04/29/2024 7:33 AM AGRICULTURAL PURCHASING AGENT Low grade B-cell lymphoma TOTAL PROTEIN Routine 04/29/2024 7:33 AM AGRICULTURAL PURCHASING AGENT Low grade B-cell lymphoma COMPLETE BLOOD COUNT W/ DIFFERENTIAL Routine 04/29/2024 7:33 AM AGRICULTURAL PURCHASING AGENT Low grade B-cell lymphoma after 12/11/2023 Results * Glucose, Random (09/27/2024 8:59 AM CDT) Only the most recent of2 resultswithin the time period is included. Glucose Random 116 70 - 199 mg/dL 09/27/2024 9:51 AM CDT [facility] Blood Peripheral blood specimen / Unknown Venipuncture / Unknown 09/27/2024 8:59 AM CDT 09/27/2024 9:03 AM CDT Narrative [facility] - 09/27/2024 9:51 AM CDT Effective 10/18/15, the glucose reference intervals have been updated based on [place] [employer] guidelines (Standards of Medical Care in Diabetes 2016. Diabetes Care 2016; 39: S13-S22). Fasting blood glucose: Normal: 70-99 mg/dL Impaired fasting glucose (increased risk for diabetes or pre-diabetes): 100-125 mg/dL Diabetes mellitus: >/=126 mg/dL Random blood glucose: Normal: 70-199 mg/dL Note: Random glucose >100 mg/dL is associated with increased risk for diabetes us Krystina Ritter PA-C LAB BLOOD ORDERABLES Final Re sult [facility] Unless otherwise noted, all lab tests performed by: Division of Pathology and Laboratory Medicine [address] [place] [phone] * (ABNORMAL) .CBC (09/27/2024 8:59 AM CDT) Only the most recent of2 resultswithin the time period is included. White Blood Cell 30.4(H) 4.1 - 10.5 K/uL 09/27/2024 10:15 AM CDT [facility] Red Blood Cell 3.03(L) 3.99 - 5.46 M/uL 09/27/2024 10:15 AM CDT [facility] Hemoglobin 10.9(L) 12.2 - 15.3 g/dL 09/27/2024 10:15 AM T [facility] Hematocrit 31.4(L) 36.4 - 46.8 % 09/27/2024 10:15 AM CDT [facility] Mean Cell Volume 104(H) 82 - 99 fL 09/27/2024 10:15 AM CDT [facility] Mean Cell Hemoglobin 36.0(H) 26.6 - 33.2 pg 09/27/2024 10:15 AM T [facility] Mean Cell Hemoglobin Concentration 34.7 31.1 - 35.2 g/dL 09/27/2024 10:15 AM T [facility] RDW-SD 47.0 37.5 - 49.7 fL 09/27/2024 10:15 AM T [facility] Red Cell Diameter Width 12.4 11.6 - 15.5 % 09/27/2024 10:15 AM T [facility] Platelet 175 160 - 397 K/uL 09/27/2024 10:15 AM T [facility] Mean Platelet Volume 10.8 9.1 - 12.6 fL 09/27/2024 10:15 AM [facility] INRBC 0.0 0.0 - 0.1 /100 WBC 09/27/2024 10:15 AM T [facility] Comment: The INRBC value reflects the enumeration of nucleated red blood cells contained in a 200uL sample of whole blood analyzed by the instrument. This value may differ from the NRBC value reported in a manual diff, which is based on a 100 cell differential. Blood Peripheral blood specimen / Unknown Venipuncture / Unknown 09/27/2024 8:59 AM CDT 09/27/2024 9:03 AM CDT us Krystina Ritter PA-C LAB BLOOD ORDERABLES Final Re sult [facility] Unless otherwise noted, all lab tests performed by: Division of Pathology and Laboratory Medicine [address] [place] [phone] * Fractionated Bilirubin (09/27/2024 8:59 AM CDT) Only the most recent of2 resultswithin the time period is included. Bilirubin Direct 09/28/19 9:51 AM CDT [facility] Comment: Direct and indirect bilirubin will not be reported when Total bilirubin result is <0.3 mg/dL Indocyanine Green (ICG) may cause falsely elevated bilirubin results. Total and direct bilirubin must not be measured from samples containing indocyanine green. Bilirubin Indirect 2024 9:51 AM CDT [facility] Comment:Direct and indirect bilirubin will not be reported when Total bilirubin result is <0.3 mg/dL Bilirubin Total <0.3 0.0 - 1.2 mg/dL 09/27/2024 9:51 AM CDT [facility] Comment: Direct and indirect bilirubin will not be reported when Total bilirubin result is <0.3 mg/dL Indocyanine Green (ICG) may cause falsely elevated bilirubin results. Total and direct bilirubin must not be measured from samples containing indocyanine green. False elevation of total bilirubin can be seen in patients with IgG concentrations above 28 g/L. Blood Peripheral blood specimen / Unknown Venipuncture / Unknown 09/27/2024 8:59 AM CDT 09/27/2024 9:03 AM CDT Krystina Ritter PA-C LAB BLOOD ORDERABLES Final Re sult [facility] Unless otherwise noted, all lab tests performed by: Division of Pathology and Laboratory Medicine [address] [place] [id number] * (ABNORMAL) Differential (09/27/2024 8:59 AM CDT) Only the most recent of2 resultswithin the time period is included. Total Cells 100 09/27/2024 10:15 AM CDT [facility] Manual Neutrophil % 22.0(L) 43.2 - 72.7 % 09/27/2024 10:15 AM CDT [facility] Comment:The Neutrophil count includes Bands. Manual Lymphocyte % 75.0(H) 16.8 - 46.2 % 09/27/2024 10:15 AM CDT [facility] Manual Monocyte % 3.0(L) 5.1 - 12.5 % 09/27/2024 10:15 AM CDT [facility] Metamyelocyte % 10:15 AM CDT [facility] Comment:The Metamyelocyte co unt includes Myelocytes. Manual Neutrophil Abs 6.69 1.95 - 7.25 K/uL 09/27/2024 10:15 AM CDT [facility] Manual Lymphocyte Abs 22.80(H) 1.01 - 3.24 K/uL 09/27/2024 10:15 AM CDT [facility] Manual Monocyte Abs 0.91(H) 0.24 - 0.85 K/uL 09/27/2024 10:15 AM CDT [facility] RBC Morphology PRESENT 09/27/2024 10:15 AM CDT [facility] PLT Morph Normal Normal 09/27/2024 10:15 AM CDT [facility] Ovalocyte Present(A) (none) 09/27/2024 10:15 AM CDT [facility] Tear Drop Present(A) (none) 09/27/2024 10:15 AM CDT [facility] Smudge Cells Present(A) (none) 09/27/2024 10:15 AM CDT [facility] Slide Comment SEE NOTE 09/27/2024 10:15 AM CDT [facility] Comment:Differential perform ed on Albumin prep. Blood Peripheral blood specimen / Unknown Venipuncture / Unknown 09/27/2024 8:59 AM CDT 09/27/2024 9:03 AM CDT us Krystina Ritter PA-C LAB BLOOD ORDERABLES Final Re sult [facility] Unless otherwise noted, all lab tests performed by: Division of Pathology and Laboratory Medicine [address] [place] [id number] * Uric Acid (09/27/2024 8:59 AM CDT) Only the most recent of2 resultswithin the time period is included. Uric Acid 4.2 2.4 - 5.7 mg/dL 09/27/2024 9:51 AM CDT [facility] Blood Peripheral blood specimen / Unknown Venipuncture / Unknown 09/27/2024 8:59 AM CDT 09/27/2024 9:03 AM CDT Krystina Ritter PA-C LAB BLOOD ORDERABLES Final Re sult Performing Organization Address City/[facility] Co de Phone Number [facility] Unless otherwise noted, all lab tests performed by: Division of Pathology and Laboratory Medicine [address] [place] [phone] * (ABNORMAL) BUN (09/27/2024 8:59 AM CDT) Only the most recent of2 resultswithin the time period is included. Pathologist [facility] BUN 32(H) 6 - 23 mg/dL 09/27/2024 9:51 AM CDT [facility] Blood Peripheral blood specimen / Unknown Venipuncture / Unknown 09/27/2024 8:59 AM CDT 09/27/2024 9:03 AM CDT Krystina VERAS-C LAB BLOOD ORDERABLES Final Re sult Performing Organization Address City/[facility] Co de Phone Number [facility] Unless otherwise noted, all lab tests performed by: Division of Pathology and Laboratory Medicine [address] [place] [phone] * Alanine Aminotransferase (09/27/2024 8:59 AM CDT) Only the most recent of2 resultswithin the time period is included. ALT 31 <=33 U/L 09/27/2024 9:51 AM CDT [facility] Blood Peripheral blood specimen / Unknown Venipuncture / Unknown 09/27/2024 8:59 AM CDT 09/27/2024 9:03 AM CDT Krystina Ritter PA-C LAB BLOOD ORDERABLES Final Re sult Performing Organization Address City/[facility] Co de Phone Number [facility] Unless otherwise noted, all lab tests performed by: Division of Pathology and Laboratory Medicine [address] [place] [phone] * Aspartate Aminotransferase (09/27/2024 8:59 AM CDT) Only the most recent of2 resultswithin the time period is included. AST 25 <=32 U/L 09/27/2024 9:51 AM CDT [facility] Blood Peripheral blood specimen / Unknown Venipuncture / Unknown 09/27/2024 8:59 AM CDT 09/27/2024 9:03 AM CDT Krystina Cansecoi PA-C LAB BLOOD ORDERABLES Final Re sult Performing Organization Address [facility] de Phone Number [facility] Unless otherwise noted, all lab tests performed by: Division of Pathology and Laboratory Medicine [address] [place] [phone] * (ABNORMAL) Total Protein (09/27/2024 8:59 AM CDT) Only the most recent of2 resultswithin the time period is included. Tot Protein 6.3(L) 6.4 - 8.3 gm/dL 09/27/2024 9:51 AM CDT [facility] Blood Peripheral blood specimen / Unknown Venipuncture / Unknown 09/27/2024 8:59 AM CDT 09/27/2024 9:03 AM CDT Narrative [facility] - 09/27/2024 9:51 AM CDT Reference range established based on adult population Krystina Ritter PA-C LAB BLOOD ORDERABLES Final Re sult Performing Organization Address City/[facility] Co de Phone Number [facility] Unless otherwise noted, all lab tests performed by: Division of Pathology and Laboratory Medicine [address] [place] [phone] * Phosphorus Level (09/27/2024 8:59 AM CDT) Only the most recent of2 resultswithin the time period is included. Phosphorus Level 4.5 2.5 - 4.5 mg/dL 09/27/2024 9:51 AM CDT [facility] Blood Peripheral blood specimen / Unknown Venipuncture / Unknown 09/27/2024 8:59 AM CDT 09/27/2024 9:03 AM CDT Krystina Ritter PA-C LAB BLOOD ORDERABLES Final Re sult Performing Organization Address City/[facility] Co de Phone Number [facility] Unless otherwise noted, all lab tests performed by: Division of Pathology and Laboratory Medicine [address] [place] [phone] * Alkaline Phosphatase (09/27/2024 8:59 AM CDT) Only the most recent of2 resultswithin the time period is included. Alkaline Phosphatase 56 35 - 104 U/L 09/27/2024 9:51 AM CDT [facility] Blood Peripheral blood specimen / Unknown Venipuncture / Unknown 09/27/2024 8:59 AM CDT 09/27/2024 9:03 AM CDT Krystina Ritter PA-C LAB BLOOD ORDERABLES Final Re sult Performing Organization Address City/[facility]/ZIP Co de Phone Number [facility] Unless otherwise noted, all lab tests performed by: Division of Pathology and Laboratory Medicine [address] [place] [phone] * Magnesium Level (09/27/2024 8:59 AM CDT) Only the most recent of2 resultswithin the time period is included. Magnesium Level 2.4 1.6 - 2.6 mg/dL 09/27/2024 9:51 AM CDT [facility] Blood Peripheral blood specimen / Unknown Venipuncture / Unknown 09/27/2024 8:59 AM CDT 09/27/2024 9:03 AM CDT Krystina Ritter PA-C LAB BLOOD ORDERABLES Final Re sult Performing Organization Address [facility]/ZIP Co de Phone Number [facility] Unless otherwise noted, all lab tests performed by: Division of Pathology and Laboratory Medicine [address] [place] [phone] * LDH (09/27/2024 8:59 AM CDT) Only the most recent of2 resultswithin the time period is included. LDH 171 135 - 214 U/L 09/27/2024 9:43 AM CDT [facility] Blood Peripheral blood specimen / Unknown Venipuncture / Unknown 09/27/2024 8:59 AM CDT 09/27/2024 9:03 AM CDT Narrative [facility] - 09/27/2024 9:43 AM CDT Results greater than 1651 U/L may not be reliable due to matrix effect with extended dilution as it exceeds the manager transportation's recommended limit. Caution should be exercised when interpreting such values and done in conjunction with clinical context. Krystina Ritter PA-C LAB BLOOD ORDERABLES Final Re sult Performing Organization Address [facility] de Phone Number [facility] Unless otherwise noted, all lab tests performed by: Division of Pathology and Laboratory Medicine [address] [place] [phone] * (ABNORMAL) Creatinine (09/27/2024 8:59 AM CDT) Only the most recent of2 resultswithin the time period is included. Creatinine 1.34(H) 0.51 - 0.95 mg/dL 09/27/2024 9:51 AM CDT [facility] eGFR 38(L) >=60 mL/min/1. 73 sq. m 09/27/2024 9:51 AM CDT [facility] Comment: The eGFRcr is calculated with the [...] nor G2 fulfill criteria for CKD. Blood Peripheral blood specimen / Unknown Venipuncture / Unknown 09/27/2024 8:59 AM CDT 09/27/2024 9:03 AM CDT Krystina Ritter PA-C LAB BLOOD ORDERABLES Final Re sult [facility] Unless otherwise noted, all lab tests performed by: Division of Pathology and Laboratory Medicine [address] [place] [phone] * Calcium Level (09/27/2024 8:59 AM CDT) Only the most recent of2 resultswithin the time period is included. Calcium Level Total 9.3 8.2 - 10.2 mg/dL 09/27/2024 9:51 AM CDT [facility] Blood Peripheral blood specimen / Unknown Venipuncture / Unknown 09/27/2024 8:59 AM CDT 09/27/2024 9:03 AM CDT Krystina Ritter PA-C LAB BLOOD ORDERABLES Final Re sult [facility] Unless otherwise noted, all lab tests performed by: Division of Pathology and Laboratory Medicine [address] [place] [phone] * Albumin Level (09/27/2024 8:59 AM CDT) Only the most recent of2 resultswithin the time period is included. Albumin Level 4.3 3.5 - 5.2 gm/dL 09/27/2024 9:51 AM CDT [facility] Blood Peripheral blood specimen / Unknown Venipuncture / Unknown 09/27/2024 8:59 AM CDT 09/27/2024 9:03 AM CDT Krystina VERAS-C LAB BLOOD ORDERABLES Final Re sult Performing Organization Address City/[facility] Co de Phone Number [facility] Unless otherwise noted, all lab tests performed by: Division of Pathology and Laboratory Medicine [address] [place] [phone] * (ABNORMAL) Electrolyte Panel (09/27/2024 8:59 AM CDT) Only the most recent of2 resultswithin the time period is included. Sodium Level 139 136 - 145 mmol/L 09/27/2024 9:51 AM CDT [facility] Potassium Level 5.2(H) 3.4 - 4.5 mmol/L 09/27/2024 9:51 AM CDT [facility] Chloride 103 98 - 107 mmol/L 09/27/2024 9:51 AM CDT [facility] CO2 28 22 - 29 mmol/L 09/27/2024 9:51 AM CDT [facility] Anion Gap 8 4 - 14 mmol/L 09/27/2024 9:51 AM CDT [facility] Blood Peripheral blood specimen / Unknown Venipuncture / Unknown 09/27/2024 8:59 AM CDT 09/27/2024 9:03 AM CDT us Krystina VERAS-C LAB BLOOD ORDERABLES Final Re sult [facility] Unless otherwise noted, all lab tests performed by: Division of Pathology and Laboratory Medicine [address] [place] [address] * CT Chest Abdomen Pelvis without Contrast Lymphoma (04/29/2024 8:44 AM AGRICULTURAL PURCHASING AGENT) Anatomical Region Laterality Modality Chest, Abdomen, Pelvis Computed Tomography 04/29/2024 8:50 AM AGRICULTURAL PURCHASING AGENT Impressions 04/29/2024 8:59 AM AGRICULTURAL PURCHASING AGENT Limited evaluation due to lack of intravenous contrast. No lymphadenopathy identified in the chest, abdomen, or pelvis. ACTIONABLE ITEMS/RECOMMENDATIONS*: None. *An Actionable Finding is a finding that may be unrelated to the original reason for imaging but potentially actionable, meaning further investigation may be necessary. The Actionable Findings Vigilance Unit (AFVU) assists medical providers with responding to additional radiologic findings that are unexpected and potentially actionable. Narrative 04/29/2024 8:59 AM AGRICULTURAL PURCHASING AGENT FULL RESULT: Examination: CT CHEST ABDOMEN PELVIS WO CONTRAST LYMPHOMA on 04/29/2024 8:44 AM. Clinical History: Low grade B-cell lymphoma. Indication: evaluate for lymphoma staging. Comparison: 11/13/2023. Technique: CT CHEST ABDOMEN PELVIS WO CONTRAST LYMPHOMA. Findings: CHEST: Lungs and Pleura: * No suspicious pulmonary nodule. * Stable few sub-5 mm nonspecific pulmonary nodules annotated in series 303, favored to be benign. * No consolidation. * No pleural effusion. Cardiomediastinum: The heart is normal in size. No pericardial effusion. Lymph nodes: No lymphadenopathy. ABDOMEN AND PELVIS: Hepatobiliary: * No suspicious hepatic lesion. * No biliary dilatation. * Cholelithiasis Spleen: No splenomegaly. Pancreas: No solid mass or ductal dilatation. Adrenal Glands: No mass. Kidneys, Ureters: * No exophytic renal lesion. * No hydronephrosis. A nonobstructing stone lower calyx left kidney image 76 series 605 measures 4.5 mm. Urinary Bladder: No bladder mass. Gastrointestinal Tract: No obstruction. Pelvic Organs: No pelvic mass. Hysterectomy Peritoneum/Retroperitoneum: No ascites. Lymph Nodes: No lymphadenopathy. MUSCULOSKELETAL: No suspicious skeletal lesion. Stable postsurgical changes in the spine. Procedure Note Kev Ferguson MD - 04/29/2024 FULL RESULT: Examination: CT CHEST ABDOMEN PELVIS WO CONTRAST LYMPHOMA on 04/29/2024 8:44AM. Clinical History: Low grade B-cell lymphoma. Indication: evaluate for lymphoma staging. Comparison: 11/13/2023. Technique: CT CHEST ABDOMEN PELVIS WO CONTRAST LYMPHOMA. Findings: CHEST: Lungs and Pleura: * No suspicious pulmonary nodule. * Stable few sub-5 mm nonspecific pulmonary nodules annotated in [id number], favored to be benign. * No consolidation. * No pleural effusion. Cardiomediastinum: The heart is normal in size. No pericardial effusion. Lymph nodes: No lymphadenopathy. ABDOMEN AND PELVIS: Hepatobiliary: * No suspicious hepatic lesion. * No biliary dilatation. * Cholelithiasis Spleen: No splenomegaly. Pancreas: No solid mass or ductal dilatation. Adrenal Glands: No mass. Kidneys, Ureters: * No exophytic renal lesion. * No hydronephrosis. A nonobstructing stone lower calyx left kidneyimage 76 series 605 measures 4.5 mm. Urinary Bladder: No bladder mass. Gastrointestinal Tract: No obstruction. Pelvic Organs: No pelvic mass. Hysterectomy Peritoneum/Retroperitoneum: No ascites. Lymph Nodes: No lymphadenopathy. MUSCULOSKELETAL: No suspicious skeletal lesion. Stable postsurgical changes in the spine. IMPRESSION: Limited evaluation due to lack of intravenous contrast. No lymphadenopathy identified in the chest, abdomen, or pelvis. ACTIONABLE ITEMS/RECOMMENDATIONS*: None. *An Actionable Finding is a finding that may be unrelated to the originalreason for imaging but potentially actionable, meaning furtherinvestigation may be necessary. The Actionable Findings Vigilance Unit(AFVU) assists medical providers with responding to additional radiologicfindings that are unexpected and potentially actionable. Kaitlin VERAS [facility] CT ORDERABLES Final Result * CT Neck without Contrast Lymphoma (04/29/2024 8:44 AM AGRICULTURAL PURCHASING AGENT) Anatomical Region Laterality Modality Neck Computed Tomogra phy 04/29/2024 3:16 PM AGRICULTURAL PURCHASING AGENT Impressions 04/29/2024 3:20 PM AGRICULTURAL PURCHASING AGENT 1. No cervical lymphadenopathy. 2. No acute sinusitis. 3. Non-contrast study. ACTIONABLE ITEMS/RECOMMENDATIONS*: None. *An Actionable Finding is a finding that may be unrelated to the original reason for imaging but potentially actionable, meaning further investigation may be necessary. The Actionable Findings Vigilance Unit (AFVU) assists medical providers with responding to additional radiologic findings that are unexpected and potentially actionable. Narrative 04/29/2024 3:20 PM AGRICULTURAL PURCHASING AGENT FULL RESULT: Examination: CT NECK WO CONTRAST LYMPHOMA on 04/29/2024 8:44 AM. CLINICAL HISTORY: Low grade B-cell lymphoma INDICATION: evaluate for lymphoma staging COMPARISON: CT of the neck November 13, 2023. TECHNIQUE: CT neck without contrast was performed. FINDINGS: Lymph nodes: No cervical lymphadenopathy is present. Other findings: The upper aerodigestive tract is unremarkable. Stable opacification of left maxillary sinus and bilateral medial antrostomies. No air-fluid levels. Otherwise, the major salivary glands are unremarkable. The thyroid gland is normal in appearance. The visualized paranasal sinuses are predominantly clear. The visualized brain parenchyma is unremarkable. Please refer to concurrent chest CT. Procedure Note Jose Alberto Cheng MD - 04/29/2024 FULL RESULT: Examination: CT NECK WO CONTRAST LYMPHOMA on 04/29/2024 8:44 AM. CLINICAL HISTORY: Low grade B-cell lymphoma INDICATION: evaluate for lymphoma staging COMPARISON: CT of the neck November 13, 2023. TECHNIQUE: CT neck without contrast was performed. FINDINGS: Lymph nodes: No cervical lymphadenopathy is present. Other findings: The upper aerodigestive tract is unremarkable. Stable opacification of left maxillary sinus and bilateral medialantrostomies. No air-fluid levels. Otherwise, the major salivary glandsare unremarkable. The thyroid gland is normal in appearance. The visualized paranasal sinuses are predominantly clear. The visualized brain parenchyma is unremarkable. Please refer to concurrent chest CT. IMPRESSION: 1. No cervical lymphadenopathy. 2. No acute sinusitis. 3. Non-contrast study. ACTIONABLE ITEMS/RECOMMENDATIONS*: None. *An Actionable Finding is a finding that may be unrelated to the originalreason for imaging but potentially actionable, meaning furtherinvestigation may be necessary. The Actionable Findings Vigilance Unit(AFVU) assists medical providers with responding to additional radiologicfindings that are unexpected and potentially actionable. Kaitlin VERAS [facility] CT ORDERABLES Final Result * CBC Pathology Review (04/29/2024 7:33 AM AGRICULTURAL PURCHASING AGENT) CBC Path Interp Lymphocytosis composed mainly of intermediate sized atypical lymphoid cells with indistinct nucleoli; some show plasmacytoid appearing. The morphological findings are consistent with involvement by patient's history of B-cell lymphoma. Correlation with the clinical findings is suggested. 04/29/2024 1:19 PM AGRICULTURAL PURCHASING AGENT [facility] Pathologist Signature . 04/29/2024 1:19 PM AGRICULTURAL PURCHASING AGENT [facility] Blood Peripheral blood specimen / Unknown Venipuncture / Unknown 04/29/2024 7:33 AM AGRICULTURAL PURCHASING AGENT 04/29/2024 7:36 AM AGRICULTURAL PURCHASING AGENT Kaitlin VERAS LAB BLOOD ORDERABLES Final Resu lt [facility] Unless otherwise noted, all lab tests performed by: Division of Pathology and Laboratory Medicine [address] [place] [phone] after 12/11/2023 Insurance MEDICARE PART A AND B [place] MEDICARE PART A AND B [place] Advance Directives Documents on File Type Date Recorded 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 Expl anation Advance Directives: Medical Power of Criminal Lawyer 08/04/2022 Medical Power of Att orney * Full Code (Latest Code Status on File) Date Activated Date Inactivated Comments 08/11/2024 10:03 AM Update based on Advanced Directive Documentation * Full Code Date Activated Date Inactivated Comments 11/13/2023 10:51 PM 11/16/2023 7:06 PM 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 PCP - General Lymphoma and Myeloma 04/26/21 Humaira Rahman MD [address] [address] Physician Medical Oncology 04/26/21 Salinas Baptiste MD [facility] [place] [address] Physician Anesthesiology 05/28/21 Mary Serna MD [address] [address] [email or web address] 11/16/21 Inga Juarez NP [address] [place] [phone] Family Practice 04/03/23 Armani Sanders MD [facility] [place] [address] [email or web address] Consulting Physician Supportive Care 04/03/23 Carleen Rice, RN [facility] [place], [place] [email or web address] [facility] 11/14/23 12/31/23
--- NOTE | 2024-12-10 14:46 | RAD REPORT ---
Extremity Venous [facility] CLINICAL INDICATION: Female, 89 years old.SWELLING TECHNIQUE: Complete duplex sonography of the lower extremity veins was performed of the affected limb . The examination included compression for vein patency, color Doppler imaging and flow augmentation in response to distal compression of the distal external iliac, common femoral, femoral, popliteal, peroneal, tibial and great saphenous veins. [id number]. COMPARISON: No prior exams FINDINGS: Duplex sonography imaging demonstrates all deep veins examined to be fully compressible with spontane ous, phasic and augmented flow in the affected limb. Lyons's cyst at the left popliteal fossa measuring 5.2 x 4.2 x 0.9 cm. IMPRESSION: No evidence of deep venous thrombosis in the left lower extremity.
--- NOTE | 2024-12-10 14:57 | ER ---
Nurse's Notes [facility] Name: Olga Santiago Age: 89 yrs Sex: Female : 1935 Arrival Date: 12/10/2024 Time: 12:35 Bed 12 Private MD: Diagnosis: Left leg swelling;Essential (primary) hypertension Presentation: 12/10 13:03 Chief complaint: Patient states: LT KNEE PAIN AND SLIGHT SWELLING X 2 WEEKS. 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 Coronavirus screen: At this time, the client does not indicate any symptoms associated with coronavirus-19. Ebola Screen: No symptoms or risks identified at this time. Risk Assessment: Do you want to hurt yourself or someone else? Patient reports no desire to harm self or others. Onset of symptoms is unknown. 13:03 Method Of Arrival: Ambulatory dd2 13:03 Acuity: RACHEL 3 dd2 13:05 Initial Sepsis Screen: Does the patient meet any 2 criteria? RR > 20 per min. Does the dd2 patient have a suspected source of infection? No. Patient's initial sepsis screen is negative. Triage Assessment: 13:05 General: Appears in no apparent distress. uncomfortable, Behavior is cooperative, dd2 appropriate for age, anxious. Pain: Complains of pain in left knee. Musculoskeletal: Circulation, motion, and sensation intact. Range of motion: intact in all extremities, Tenderness present in left knee Reports pain in left knee. Historical: - Allergies: 13:05 aripiprazole; dd2 13:05 Clindamycin; dd2 - Home Meds: 13:05 allopurinol 100 mg Oral tablet [Active]; aspirin 81 mg Oral capsule [Active]; Bactrim dd2 DS 800-160 mg Oral tablet [Active]; Calquence (acalabrutinib mal) 100 mg Oral tablet 1 tab every 12 hours [Active]; Cymbalta 60 mg Oral capsule [Active]; estradiol 0.075 mg/24 hr transdermal patch [Active]; hydrochlorothiazide 12.5 mg Oral tablet [Active]; oxycodone-acetaminophen 7.5-325 mg Oral tablet 1 tab 3 times per day [Active]; rosuvastatin 10 mg Oral tablet [Active]; valacyclovir 500 mg Oral tablet [Active]; valsartan 80 mg Oral tablet [Active]; Zyrtec 10 mg Oral tablet [Active]; - PMHx: 13:05 diabetes mellitus; Hypertensive disorder; LYMPHOMA; dd2 - PSHx: 13:05 Appendectomy; Cervical surgery; hysterectomy; Tonsillectomy; dd2 - Immunization history:: Adult Immunizations up to date. - Infectious Disease History:: Denies. - Social history:: Smoking status: Patient denies any tobacco usage or history of. Screenin:08 [facility] ED Fall Risk Assessment (Adult) History of falling in the last 3 months, ll1 including since admission No falls in past 3 months (0 pts) Confusion or Disorientation No (0 pts) Intoxicated or Sedated No (0 pts) Impaired Gait No (0 pts) Mobility Assist Device Used No (0 pt) Altered Elimination No (0 pt) Score/Fall Risk Level 0 - 2 = Low Risk Maintained a safe environment, Hourly rounding (assess needs \T\ fall precautionary measures) done. Abuse screen: Denies threats or abuse. Nutritional screening: No deficits noted. Tuberculosis screening: No symptoms or risk factors identified. Assessment: 15:09 Reassessment: No changes from previously documented assessment. Patient and/or family ll1 updated on plan of care and expected duration. Pain level reassessed. Patient is alert, oriented x 3, equal unlabored respirations, skin warm/dry/pink. Vital Signs: 13:05 BP 177 / 73; Pulse 82; Resp 16; Temp 98.1; Pulse Ox 100% on R/A; Weight 71.21 kg; Pain dd2 8/10; 15:08 BP 161 / 71; Pulse 81; Resp 17; Pulse Ox 100% ; ll1 13:05 Pain Scale: Adult dd2 ED Course: 12:38 Patient arrived in ED. im 12:56 Milton Patel DO is Attending Physician. ms3 13:05 Triage completed. dd2 13:05 Arm band placed on right wrist. dd2 13:06 Patient has correct armband on for positive identification. Provided Education on: ER ll1 procedures and process. 14:24 Extremity Venous [facility] [employer] US In Process Unspecified. EDMS 15:09 No provider procedures requiring assistance completed. Patient did not have IV access ll1 during this emergency room visit. Administered Medications: No medications were administered Medication: 15:15 VIS not applicable for this client. ll1 Outcome: 14:56 Discharge ordered by . ms3 15:09 Patient left the ED. ts3 15:09 Discharged to home ambulatory, ll1 15:09 Condition: stable 15:09 Discharge instructions given to patient, Instructed on discharge instructions, follow up and referral plans. Demonstrated understanding of instructions, follow-up care, Signatures: Dispatcher [employer] Jessica Kay RN RN ll1 Milton Patel DO DO ms3 Emy Corral DIANA, RN RN dd2 Rosa Johnson ts3
--- NOTE | 2024-12-10 14:57 | EDPHYS ---
Physician Documentation [facility] Name: Olga Santiago Age: 89 yrs Sex: Female : 1935 Arrival Date: 12/10/2024 Time: 12:35 Bed 12 Private MD: ED Physician Milton Patel HPI: 12/10 14:21 This 89 yrs old Female presents to ER via Ambulatory with complaints of Knee Pain - ms3 Swollen left. 14:21 89-year-old female with past medical history of diabetes, hypertension, lymphoma ms3 presents to the emergency department for left leg swelling. Patient states she is concerned for DVT. Patient notes she did fall on that knee in July and has subsequently had infection in that leg. Patient denies any alleviating or inciting factors.. Historical: - Allergies: 13:05 aripiprazole; dd2 13:05 Clindamycin; dd2 - Home Meds: 13:05 allopurinol 100 mg Oral tablet [Active]; aspirin 81 mg Oral capsule [Active]; Bactrim dd2 DS 800-160 mg Oral tablet [Active]; Calquence (acalabrutinib mal) 100 mg Oral tablet 1 tab every 12 hours [Active]; Cymbalta 60 mg Oral capsule [Active]; estradiol 0.075 mg/24 hr transdermal patch [Active]; hydrochlorothiazide 12.5 mg Oral tablet [Active]; oxycodone-acetaminophen 7.5-325 mg Oral tablet 1 tab 3 times per day [Active]; rosuvastatin 10 mg Oral tablet [Active]; valacyclovir 500 mg Oral tablet [Active]; valsartan 80 mg Oral tablet [Active]; Zyrtec 10 mg Oral tablet [Active]; - PMHx: 13:05 diabetes mellitus; Hypertensive disorder; LYMPHOMA; dd2 - PSHx: 13:05 Appendectomy; Cervical surgery; hysterectomy; Tonsillectomy; dd2 - Immunization history:: Adult Immunizations up to date. - Infectious Disease History:: Denies. - Social history:: Smoking status: Patient denies any tobacco usage or history of. ROS: 14:21 Constitutional: Negative for fever, and chills. Cardiovascular: Negative for chest ms3 pain, and palpitations. Respiratory: Negative for shortness of breath, cough, wheezing, and pleuritic chest pain, Abdomen/GI: Negative for abdominal pain, nausea, vomiting, diarrhea, and constipation, 14:21 MS/extremity: Positive for Left leg swelling, Exam: 14:21 Constitutional: This is a well developed, well nourished patient who is awake, alert, ms3 and in no acute distress. Cardiovascular: Regular rate and rhythm with a normal S1 and S2. No gallops, murmurs, or rubs. Normal PMI, no JVD. No pulse deficits. Respiratory: Lungs have equal breath sounds bilaterally, clear to auscultation and percussion. No rales, rhonchi or wheezes noted. No increased work of breathing, no retractions or nasal flaring. Abdomen/GI: Soft, non-tender, with normal bowel sounds. No distension or tympany. No guarding or rebound. No evidence of tenderness throughout. Skin: Warm, dry with normal turgor. Normal color with no rashes, no lesions, and no evidence of cellulitis. 14:21 Musculoskeletal/extremity: Extremities: noted in the left leg: swelling, There is no evidence of decreased ROM, pain, tenderness, Vital Signs: 13:05 BP 177 / 73; Pulse 82; Resp 16; Temp 98.1; Pulse Ox 100% on R/A; Weight 71.21 kg; Pain dd2 8/10; 15:08 BP 161 / 71; Pulse 81; Resp 17; Pulse Ox 100% ; ll1 13:05 Pain Scale: Adult dd2 MDM: 13:03 Medical Screening Exam initiated ms3 14:21 Differential diagnosis: DVT versus arthritis versus contusion. ms3 14:57 Data reviewed: vital signs, nurses notes, radiologic studies, and as a result, I will ms3 discharge patient. Counseling: I had a detailed discussion with the patient and/or guardian regarding the historical points, exam findings, and any diagnostic results supporting the discharge/admit diagnosis, radiology results, the need for outpatient follow up, to return to the emergency department if symptoms worsen or persist or if there are any questions or concerns that arise at home. Special discussion: I discussed with the patient/guardian in detail that at this point there is no indication for admission to the hospital. It is understood, however, that if the symptoms persist or worsen the patient needs to return immediately for re-evaluation. ED course: Discussed DVT ultrasound with patient. Patient to follow-up with primary care physician in 2 to 3 days. All questions were answered. Return precautions discussed include worsening symptoms, or any other concerns. 12/10 13:04 Order name: Extremity Venous [employer] US; Complete Time: 14:54 ms3 Administered Medications: No medications were administered Disposition Summary: 12/10/24 14:56 Discharge Ordered Notes: Location: Home ms3 Condition: Stable ms3 Diagnosis - Left leg swelling ms3 - Essential (primary) hypertension ms3 Followup: ms3 - With: Private Physician - When: 2 - 3 days - Reason: Recheck today's complaints Discharge Instructions: - Discharge Summary Sheet ms3 - Hypertension, Adult ms3 - DASH Eating Plan ms3 Forms: - Medication Reconciliation Form ms3 - Antibiotic Education ms3 - Prescription Opioid Use ms3 - Patient Portal Instructions ms3 - Leadership Thank You Letter ms3 Signatures: Dispatcher [employer] Milton Saldaña DO DO ms3 HARMEET MADERA RN RN dd2
[2024-12-10 15:20] VITALS: BP 177/73; TEMP 98.1; O2SAT 100
== END 2024-12-10 15:09 | disposition home or self-care (01) ==
LOC: ER 12:35
DX: R22.42 Localized swelling, mass and lump, left lower limb (principal); I10 Essential (primary) hypertension; M25.562 Pain in left knee
CPT/HCPCS: 93971; 99282